=== PATIENT | male | born 1940 | race Two or more races ===

== ENCOUNTER 2019-03-24 16:42 | Inpatient (IN) | payer OTHER ==
[2019-03-24] MEDS ORDERED: ASPIRIN 81 MG CHEWABLE TABLETS PO ONE (16:54)
--- NOTE | 2019-03-24 16:55 | PDOC ---
Rapid Medical Evaluation Time Seen by Provider: 03/24/19 16:49 Medical Evaluation: Allergies Allergy/AdvReac Type Severity Reaction Status Date / Time No Known Drug Allergies Allergy Verified 04/23/15 10:11 03/24/19 16:50 CC: midsternal chest pain radiating to right shoulder- PMHx- CABG x4 with 2 stents after bypass, valve repair PE: Speaking full sentences. Lungs CTAB. Chest non-tender. Skin warm and dry. Pain different than pain with CABG and stents. Orders: Cardiac w/u Patient will proceed to ED for continued evaluation. Discharge Disposition - Diagnosis Chest pain - Referrals - Patient Instructions - Post Discharge Activity
--- NOTE | 2019-03-24 18:40 | PDOC ---
History of Present Illness - General Chief Complaint: Chest Pain Stated Complaint: CHEST PAIN Time Seen by Provider: 03/24/19 16:49 - History of Present Illness Initial Comments: 03/24/19 18:26 78 y/o M hx of HTN, CAD, CABG s/p stent placement, CHF, pulmonary htn, presents to the ED with chest pain that began this morning. The pain has been constant in his mid chest radiating to his left shoulder. No relieving or exacerbating factors. He saw Dr. Sharmila katz a.m who sent an EKG to his Dr. Ricci who was not impressed with EKG. Pt went home. At home his pain worsened around 3 -4pm and he came to the ED. He describes it as pressure like pain with about a 5 /10 severity. He denies, nausea,vomiting, diaphoresis, fevers, chills 03/24/19 18:50 Past History - Past Medical History Allergies/Adverse Reactions: Allergies Allergy/AdvReac Type Severity Reaction Status Date / Time No Known Drug Allergies Allergy Verified 03/24/19 16:54 Home Medications: Ambulatory Orders Aspirin [Ecotrin] 81 mg PO DAILY 11/23/14 Clopidogrel Bisulfate [Plavix -] 75 mg PO DAILY 11/23/14 Lipase/Protease/Amylase [[place] 15,000 Unit Capsule] 1 500s PO TID 11/23/14 Lubiprostone [Amitiza] 24 mcg PO BID 11/23/14 Metoprolol Succinate [Toprol XL -] 25 mg PO HS 11/23/14 Olmesartan/Hydrochlorothiazide [Benicar Hct 20-12.5 mg Tablet] 1 mg PO DAILY metFORMIN HCL [Metformin ER Osmotic] 500 mg PO BID 11/23/14 Metoprolol Succinate [Toprol Xl] 50 mg PO DAILY 11/24/14 Diazepam [Valium -] 2 mg PO BID #14 tablet 04/25/15 Anemia: No Asthma: No Cancer: No Cardiac Disorders: Yes (2 OPEN HEART SX 1998, 2010) CVA: No COPD: No CHF: No Dementia: No Diabetes: Yes GI Disorders: No Disorders: No HTN: Yes Hypercholesterolemia: Yes Liver Disease: No Seizures: No Thyroid Disease: No - Surgical History Abdominal Surgery: No Appendectomy: Yes (COLONOSCOPY, POLYPS) Cardiac Surgery: No Cholecystectomy: No Lung Surgery: Yes (2 OPEN HEART SX AND STENTS) Neurologic Surgery: No Orthopedic Surgery: No - Suicide/Smoking/Psychosocial Hx Smoking History: Never smoked Have you smoked in the past 12 months: No Hx Alcohol Use: No Drug/Substance Use Hx: No Substance Use Type: None Hx Substance Use Treatment: No Review of Systems - Review of Systems Constitutional: No: Chills, Fever HEENTM: No: Eye Pain, Blurred Vision Respiratory: No: Cough, Shortness of Breath Cardiac (ROS): Yes: Symptoms Reported ABD/GI: No: Abdominal Distended, Abdominal cramping : No: Burning, Dysuria Integumentary: No: Bruising, Change in Color Neurological: No: Headache *Physical Exam - Vital Signs Last Vital Signs Temp Pulse Resp BP Pulse Ox 97.9 F 78 16 104/49 L 97 03/24/19 16:50 03/24/19 16:50 03/24/19 16:50 03/24/19 16:50 03/24/19 16:50 - Physical Exam General Appearance: Yes: Nourished, Appropriately Dressed. No: Apparent Distress HEENT: positive: EOMI. negative: Scleral Icterus (R), Scleral Icterus (L) Neck: positive: Trachea midline, Supple. negative: Tender Respiratory/Chest: positive: Lungs Clear, Normal Breath Sounds. negative: Chest Tender, Respiratory Distress, Accessory Muscle Use, Rales, Wheezing Cardiovascular: positive: Regular Rhythm, Regular Rate, S1, S2, Murmur Vascular Pulses: Dorsalis-Pedis (R): 2+, Doralis-Pedis (L): 2+ Gastrointestinal/Abdominal: positive: Normal Bowel Sounds, Soft. negative: Mass Musculoskeletal: positive: Normal Inspection. negative: CVA Tenderness Extremity: positive: Normal Capillary Refill, Normal Inspection, Normal Range of Motion, Calf Tenderness, Other (pedal edema bilaterally). negative: Coldness Integumentary: positive: Normal Color, Dry, Warm Neurologic: positive: Fully Oriented, Alert, Normal Mood/Affect Medical Decision Making - Medical Decision Making 03/24/19 19:14 78 y/o M hx of HTN, CAD, CABG s/p stent placement, CHF, pulmonary htn, presents to the ED with chest pain that began this morning Getting a cardiac workup as well as duplex venous u/s on legs bilaterally. Results back so far EKG: NSR, right bundle branch block. same as EKG in 2015 -spoke with Dr. Doll pt. is admitted to his service. Signed out to Dr. Isaac *DC/Admit/Observation/Transfer Diagnosis at time of Disposition: Chest pain - Referrals Referrals: Roger Quezada MD [Primary Care Provider] - - Patient Instructions - Post Discharge Activity
[2019-03-24] MEDS ORDERED: ACETAMINOPHEN 325 MG TABLET (FP) PO PRN (19:13)
[2019-03-24] MEDS ORDERED: diazePAM 2 MG TABLET PO PRN (19:22)
--- NOTE | 2019-03-24 19:30 | PDOC ---
*Physical Exam - Vital Signs Last Vital Signs Temp Pulse Resp BP Pulse Ox 97.9 F 78 16 104/49 L 97 03/24/19 16:50 03/24/19 16:50 03/24/19 16:50 03/24/19 16:50 03/24/19 16:50 - Physical Exam Comments: Pt was signed out to me by resident Dr. Quezada, who explained the presentation, ED course, any pending results, and needed interventions. Pending results include labs and b/l LE doppler to evaluate for DVT (swelling in LLE). Pt is currently stable and is lying comfortably. Pt has been provided daily aspirin dose. Pt admitted to Dr. Doll's service. Will get stress-test tomorrow. 03/24/19 19:28 ED Treatment Course - LABORATORY CBC & Chemistry Diagram: 03/24/19 19:20 03/24/19 20:35 Medical Decision Making - Medical Decision Making Pt was signed out to me by resident Dr. Quezada, who explained the presentation, ED course, any pending results, and needed interventions. Pending results include labs and b/l LE doppler to evaluate for DVT. Pt is currently stable and is lying comfortably. Provided daily dose of aspirin. ECG with no new changes (chronic RBBB) CBC within pt baseline Coags WNL Pending CMP. First CMP hemolyzed, specimen resent to lab. Pt taken for doppler. 03/24/19 21:02 CMP WNL Trop negative LE doppler showed no DVT Pt stable and lying comfortably. Pending bed upstairs. 03/24/19 23:38 *DC/Admit/Observation/Transfer Diagnosis at time of Disposition: Chest pain Qualifiers: Chest pain type: unspecified Qualified Code(s): R07.9 - Chest pain, unspecified - Discharge Dispostion Condition at time of disposition: Stable Decision to Admit order: Yes - Referrals - Patient Instructions - Post Discharge Activity
--- NOTE | 2019-03-24 19:45 | PDOC ---
Documentation entered by Yanira Oswald SCRIBE, acting as scribe for Arelis Webster DO. Arelis Webster DO: This documentation has been prepared by the Margret galindo Adrianna, SCRIBE, under my direction and personally reviewed by me in its entirety. I confirm that the documentation accurately reflects all work, treatment, procedures, and medical decision making performed by me. Attending Attestation - Resident Resident Name: Alton Quezada - ED Attending Attestation I have performed the following: I have examined & evaluated the patient, The case was reviewed & discussed with the resident, I agree w/resident's findings & plan - HPI HPI: The patient is an 78 year old male, with a significant PMH of HTN, CAD, CABG (s/ p stent placement), CHF, and pulmonary HTN, who presents to the ED for evaluation of chest pain since earlier this morning. Patient reports constant substernal chest pain, that radiates to his left shoulder and is exacerbated with inspiration and palpation. Patient saw Dr. Doll earlier today for this complaint, and returns to the ED for progressively worsening pain. Allergies: NKA, NKDA Surgical History: CABG, 2 stents, Social History: Denies EtOH, tobacco, or illicit drug use PCP: Dr. Quezada - Physicial Exam PE: 03/24/19 19:11 Agree with resident exam - Medical Decision Making 03/24/19 19:43 78 yo male with pmh of cad c/o cp and leg pain plan for LE Duplex, CXR labs EKG unchanged pt has mild persistant pain , ASA given as he did not take his morning dose, he is refusing Nitro admit to hospitalist service
[2019-03-24 19:59] LABS: BASO % 1.2 % (0-2.0); HEMATOCRIT 32.3 % (35.4-49); HEMOGLOBIN 10.4 GM/dL (11.7-16.9); LYMPH % 32.8 % (8-40); MCHC 32.2 g/dl (32.0-35.9); MEAN CELL VOLUME 80.9 fl (80-96); MEAN PLT VOLUME 8.1 fl (7.5-11.1); MONO % 9.8 % (3.8-10.2); NEUT % 52.2 % (42.8-82.8); PLATELET COUNT 250 K/MM3 (134-434); RDW 17.5 % (11.9-15.9); WHITE BLOOD COUNT 6.1 K/mm3 (4.0-10.0)
[2019-03-24 20:35] LABS: INR 1.15 (0.83-1.09); PROTHROMBIN TIME (PATIENT) 13.6 SEC (9.7-13.0)
[2019-03-24 21:08] LABS: MAGNESIUM 1.8 mg/dL (1.8-2.4)
[2019-03-24 22:07] LABS: ALBUMIN 3.8 g/dl (3.4-5.0); BILIRUBIN,TOTAL 0.2 mg/dL (0.2-1); BLOOD UREA NITROGEN 26.6 mg/dL (7-18); CALCIUM 9.2 mg/dL (8.5-10.1); CREATININE 1.3 mg/dL (0.55-1.3); POTASSIUM 3.8 mmol/L (3.5-5.1)
[2019-03-24] MEDS ORDERED: ACETAMINOPHEN 325 MG TABLET (FP) ONE (23:45)
[2019-03-24] MEDS ORDERED: ZOLPIDEM TARTRATE 5 MG TABLET ONE (23:45)
[2019-03-24] MEDS: ZOLPIDEM TARTRATE 5 MG TABLET PO PRN (23:57)
[2019-03-25 03:08] VITALS: BMI 29.6
[2019-03-25 06:49] LABS: HEMATOCRIT 27.3 % (35.4-49); HEMOGLOBIN 9.1 GM/dL (11.7-16.9); MCH 26.6 pg (25.7-33.7); MCHC 33.4 g/dl (32.0-35.9); MEAN CELL VOLUME 79.7 fl (80-96); MEAN PLT VOLUME 7.8 fl (7.5-11.1); PLATELET COUNT 212 K/MM3 (134-434); RBC 3.43 M/mm3 (4.00-5.60); RDW 17.2 % (11.9-15.9); WHITE BLOOD COUNT 5.5 K/mm3 (4.0-10.0)
--- NOTE | 2019-03-25 08:28 | HP ---
Admitting History and Physical - Admission History of Present Illness: 78 year old male, with a significant PMH of HTN, CAD, CABG (s/p stent placement) , CHF, and pulmonary HTN, who presents to the ED for evaluation of chest pain. Patient reports constant substernal chest pain, that radiates to his left shoulder and is exacerbated with inspiration and palpation. Patient saw Dr. Doll yesterday for this complaint, and sent to the ED for progressively worsening pain. - Past Medical History Cardiovascular: Yes: CAD, CHF, HTN, [place], Pulmonary Hypertension - Past Surgical History Past Surgical History: Yes: Valve Replacement - Smoking History Smoking history: Never smoked Have you smoked in the past 12 months: No - Alcohol/Substance Use Hx Alcohol Use: No Home Medications - Allergies Allergies/Adverse Reactions: Allergies Allergy/AdvReac Type Severity Reaction Status Date / Time No Known Drug Allergies Allergy Verified 03/24/19 16:54 - Home Medications Home Medications: Ambulatory Orders Aspirin [Ecotrin] 81 mg PO DAILY 11/23/14 Clopidogrel Bisulfate [Plavix -] 75 mg PO DAILY 11/23/14 Lipase/Protease/Amylase [Rain Dr 15,000 Unit Capsule] 1 500s PO TID 11/23/14 Lubiprostone [Amitiza] 24 mcg PO BID 11/23/14 Metoprolol Succinate [Toprol XL -] 25 mg PO HS 11/23/14 Olmesartan/Hydrochlorothiazide [Benicar Hct 20-12.5 mg Tablet] 1 mg PO DAILY metFORMIN HCL [Metformin ER Osmotic] 500 mg PO BID 11/23/14 Metoprolol Succinate [Toprol Xl] 50 mg PO DAILY 11/24/14 Diazepam [Valium -] 2 mg PO BID #14 tablet 04/25/15 Review of Systems - Review of Systems Cardiovascular: reports: Chest Pain Respiratory: reports: SOB on Exertion Gastrointestinal: reports: No Symptoms Genitourinary: reports: No Symptoms Physical Examination Vital Signs: Vital Signs Temperature 97.8 F 03/25/19 06:00 Pulse Rate 78 03/25/19 06:00 Respiratory Rate 18 03/25/19 06:00 Blood Pressure 110/59 L 03/25/19 06:00 O2 Sat by Pulse Oximetry (%) 100 03/25/19 02:30 Cardiovascular: Yes: Murmur, S1, S2 Respiratory: Yes: Regular, CTA Bilaterally Gastrointestinal: Yes: Normal Bowel Sounds, Soft. No: Tenderness Edema: No Labs: CBC, BMP 03/25/19 05:45 03/24/19 20:35 Imaging - Results Chest X-ray: Report Reviewed (nad) Ultrasound: Report Reviewed (LE no dvt carotid--mod plaque) Problem List - Problems (1) Chest pain Assessment/Plan: nuclear stress test cardio consult same meds statin trop neg Code(s): R07.9 - CHEST PAIN, UNSPECIFIED Qualifiers: Chest pain type: unspecified Qualified Code(s): R07.9 - Chest pain, unspecified (2) HTN (hypertension) Assessment/Plan: controlled Code(s): I10 - ESSENTIAL (PRIMARY) HYPERTENSION (3) Systolic and diastolic CHF, chronic Assessment/Plan: same meds no evidence of chf Code(s): I50.42 - CHRONIC COMBINED SYSTOLIC AND DIASTOLIC HRT FAIL (4) CALLES (dyspnea on exertion) Assessment/Plan: cardio w/u as above pulm consult Code(s): R06.09 - OTHER FORMS OF DYSPNEA
[2019-03-25 09:19] LABS: ALBUMIN 3.2 g/dl (3.4-5.0); ALK PHOS 59 U/L (45-117); ANION GAP 8 MMOL/L (8-16); BILIRUBIN,TOTAL 0.2 mg/dL (0.2-1); BLOOD UREA NITROGEN 24.4 mg/dL (7-18); CALCIUM 8.8 mg/dL (8.5-10.1); CHLORIDE 107 mmol/L (98-107); CO2 30 mmol/L (21-32); GLUCOSE,RANDOM 113 mg/dL (74-106); IRON SERUM 20 ug/dL (50-175); POTASSIUM 3.7 mmol/L (3.5-5.1); SGOT/AST 21 U/L (15-37); SGPT/ALT 17 U/L (13-61); SODIUM 144 mmol/L (136-145); TOT PROT 5.9 g/dl (6.4-8.2); TOTAL IRON BINDING CAPACITY 331 ug/dL (250-450)
[2019-03-25] MEDS ORDERED: ASPIRIN COATED 81 MG TABLET.EC PO SCH (10:00)
[2019-03-25] MEDS ORDERED: CLOPIDOGREL BISULFATE 75 MG TABLET (FP) PO SCH (10:00)
[2019-03-25] MEDS ORDERED: REGADENOSON 0.4 MG/5 ML PRE-FILLED SYRINGE IVPUSH ONE ×2 (10:36→10:45)
--- NOTE | 2019-03-25 14:04 | PN ---
Progress Note (short form) - Note Progress Note: PULMONARY CONSULTATION DICTATED 03/25/19 IMP CHEST PAIN SYNDROME R/O ANGINA ASHD S/P STENT/CABG DYSPNEA CHF PULMONARY HTN HTN ANEMIA R/O [place] PLAN CARDIOLOGY EVALUATION O2 NEEDED ASA ,PLAVIX MONITOR H+H ECHO SLEEP SCREEN DR SAHU Problem List - Problems (1) Chest pain Code(s): R07.9 - CHEST PAIN, UNSPECIFIED Qualifiers: Chest pain type: unspecified Qualified Code(s): R07.9 - Chest pain, unspecified (2) HTN (hypertension) Code(s): I10 - ESSENTIAL (PRIMARY) HYPERTENSION (3) Systolic and diastolic CHF, chronic Code(s): I50.42 - CHRONIC COMBINED SYSTOLIC AND DIASTOLIC HRT FAIL (4) Pulmonary HTN Code(s): I27.20 - PULMONARY HYPERTENSION, UNSPECIFIED (5) Anemia Code(s): D64.9 - ANEMIA, UNSPECIFIED (6) CALLES (dyspnea on exertion) Code(s): R06.09 - OTHER FORMS OF DYSPNEA
--- NOTE | 2019-03-25 15:06 | CON.CARD ---
Consult Consult Specialty:: cardio - History of Present Illness Chief Complaint: cp History of Present Illness: 78 M admitted with chest pain. 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 bp was on the low side yest so dr ceja held his ARB. LE dopplers done here showed no DVT. stress mibi done today showed basal inferior scar with mild nasrin-infarct ischemia. pt had L scapular mild discomfort while at rest on 03/23. lasted 10-15 min, resolved on its own. no associated abd pain, heart burn/sour taste in mouth, nausea. no LH, diaphoresis, sob. later that day when walking he felt somewhat fatigued--unusual for him. yest again felt similar episode, again resolved in 15 min or so. has had upset stomach/diarrhea (green, no melena/blood) for few days as well. never had chest pain or any other sx prior to initial CABG (1998), subsequent stents, or 2nd CABG 2010 ([facility] [place] [place]). notes he has felt mildly sob for about a week when exerts himself. mild feet swelling is chronic/no change no orthopnea PMH: HTN, CAD, CABG, s/p stent placement CHF, pulmonary HTN--details not available. - Past Medical History Cardio/Vascular: Yes: CAD, CHF, HTN, [place], Pulmonary Hypertension - Past Surgical History Past Surgical History: Yes: Valve Replacement - Alcohol/Substance Use Hx Alcohol Use: No - Smoking History Smoking history: Never smoked Have you smoked in the past 12 months: No Home Medications - Allergies Allergies/Adverse Reactions: Allergies Allergy/AdvReac Type Severity Reaction Status Date / Time No Known Drug Allergies Allergy Verified 03/24/19 16:54 - Home Medications Home Medications: Ambulatory Orders Aspirin [Ecotrin] 81 mg PO DAILY 11/23/14 Clopidogrel Bisulfate [Plavix -] 75 mg PO DAILY 11/23/14 Lipase/Protease/Amylase [[place] 15,000 Unit Capsule] 1 500s PO TID 11/23/14 Lubiprostone [Amitiza] 24 mcg PO BID 11/23/14 Metoprolol Succinate [Toprol XL -] 25 mg PO HS 11/23/14 Olmesartan/Hydrochlorothiazide [Benicar Hct 20-12.5 mg Tablet] 1 mg PO DAILY metFORMIN HCL [Metformin ER Osmotic] 500 mg PO BID 11/23/14 Metoprolol Succinate [Toprol Xl] 50 mg PO DAILY 11/24/14 Diazepam [Valium -] 2 mg PO BID #14 tablet 04/25/15 Family Disease History - Family Disease History Family History: Denies (no known cmp) Review of Systems - Review of Systems Constitutional: denies: Chills, Fever Eyes: denies: Eye Pain HENT: denies: Nasal Congestion Neck: denies: Stiffness Cardiovascular: denies: Palpitations Respiratory: denies: Orthopnea, PND Gastrointestinal: denies: Diarrhea, Rectal Bleeding Genitourinary: denies: Burning, Hematuria Musculoskeletal: denies: Muscle Pain Integumentary: denies: Rash Neurological: denies: Numbness, Seizure, Syncope Endocrine: denies: Excessive Sweating Hematology/Lymphatic: denies: Excessive Bleeding Vital Signs: Vital Signs Temperature 97.8 F 03/25/19 06:00 Pulse Rate 72 03/25/19 10:00 Respiratory Rate 18 03/25/19 10:00 Blood Pressure 147/88 03/25/19 10:00 O2 Sat by Pulse Oximetry (%) 100 03/25/19 02:30 Constitutional: Yes: Well Nourished, No Distress Eyes: No: Sclera Icterus HENT: No: Nasal Congestion Neck: No: Decreased ROM Respiratory: Yes: CTA Bilaterally. No: Accessory Muscle Use, Rales, Wheezes Gastrointestinal: Yes: Normal Bowel Sounds. No: Distention, Hepatomegaly, Palpable Mass, Tenderness Cardiovascular: Yes: Regular Rate and Rhythm JVD: Yes Carotid Bruit: No PMI: Non-Displaced Heart Sounds: Yes: S1, S2. No: Gallop Murmur: No: Systolic Murmur, Diastolic Murmur Musculoskeletal: Yes: Other (No kyphosis) Extremities: No: Cool, Cyanosis Edema: No Peripheral Pulses: 2+ Left Carotid, 2+ Right Carotid, 2+ Left Doralis Pedis, 2+ Right Dorsalis Pedis Integumentary: No: Jaundice Neurological: Yes: Alert, Oriented (x3) Psychiatric: No: Agitated - Other Data Labs, Other Data: CBC, BMP 03/25/19 05:45 03/25/19 05:45 INR, PTT INR 1.15 (0.83-1.09) H 08/19/19 19:20 Troponin, BNP 03/24/19 03/24/19 03/25/19 19:20 20:35 05:45 Troponin I Cancelled 0.02 < 0.02 Troponin, BNP 03/24/19 03/24/19 03/25/19 19:20 20:35 05:45 Troponin I Cancelled 0.02 < 0.02 Assessment/Plan ECG: NSR, RBBB, no path q's, no signif ST-T--no change vs 04/2015 prior CXR: clear lungs/pleura MPI (tolu) 03/24: no STs. medium sized fixed defeect basal IW with mild nasrin- infarct ischemia. nl LV size/EF. no TID Carotids 03/24: L CCA 50-69% stenosis (PSV 120 cm/sec). nonobstructive R CCA chest pain, h/o CAD: -prior CABG, PCI (details not available) -here with chest pain: troponin neg x 2, ECG non-ischemic -stress test with no significant ischemia (basal inferior scar with mild nasrin- infarct ischemia reported), no RWMA, nl EF: ? true small scar with nasrin-infarct ischemia (no tx indicated), ? variable diaphragm attenuation appearance, ? inferior ischemia with co-exising diaphragm artifact. -given normal LV cavity size/no TID, no ST changes, nl EF, and no hi risk clinical findings on ekg's/enzymes/sx type, none of the above possibilities is indication for invasive eval with cath. -? gastritis/PUD in light of Fe deficiency anemia--GI consult pending -he is on DAPT--last stent was > 8 yrs ago. plavix reasonable as monotherapy given also PAD indication. minimal anti-ischemia benefit to indefinite DAPT here and bleeding risk is > ischemia risk--stop aspirin. -will hold plavix pending GIB eval. -hi intensity statin regimen is indicated here. home statin needs clarification , as well as any prior intolerances--cont home regimen for now, outpt f/u -metoprolol as doing. anemia: -? chronicity -hgb 10s-->9.1. -low Fe, Fe sat, and low normal ferritin--? bleeding (PUD as cause of chest pain as well???) -check occult blood in stool -holding DAPT--resume plavix once cleared by GI -d/w'd dr ceja--dr linares to consult h/o CHF, pulm HTN: -details uncertain -notes mild CALLES and exertional fatigue, new for him. -JVD on exam -chest heaviness may be HF sx as well. -check BNP, echo--will likely rec trial of lasix to improve exertional sx's, given degree of anemia on DOA does not seem enough to cause sob Carotid disease: -velocity not consistent with > 70%, only minimally elevated. -asymptomatic. -routine outpt surveillance -aggressive CV meds (aspirin, statin, bp control) HTN: -bp's soft at times here, olmesartan/HCTZ held -resume metoprolol, observe bp trend PAD: -prior LE stents, ? details -plavix, statin
--- NOTE | 2019-03-25 16:13 | EKG ---
Test Reason : Blood Pressure : / mmHG Vent. Rate : 077 BPM Atrial Rate : 077 BPM P-R Int : 142 ms QRS Dur : 130 ms QT Int : 434 ms P-R-T Axes : 062 035 028 degrees QTc Int : 491 ms NORMAL SINUS RHYTHM RIGHT BUNDLE BRANCH BLOCK ABNORMAL ECG WHEN COMPARED WITH ECG OF 23-APR-2015 10:46, BORDERLINE CRITERIA FOR INFERIOR INFARCT ARE NO LONGER PRESENT Confirmed by MD CAROL, KIERRA ([id number]) on 03/25/2019 4:13:11 PM Referred By: Confirmed By:KIERRA MEDINA MD
[2019-03-25] MEDS ORDERED: FERRIC CARBOXYMALTOSE 750 MG in SODIUM CHLORIDE 250 ML IVPB ONE (17:00)
--- NOTE | 2019-03-25 17:04 | CONS ---
DATE OF CONSULTATION: 03/25/2019 PULMONARY CONSULTATION REFERRING PHYSICIAN: González Doll M.D. HISTORY OF PRESENT ILLNESS: The patient is an 78-year-old white male with a past medical history of ASHD status post CABG x2, status post stent, congestive heart failure, pulmonary hypertension, hypertension, admitted to [facility] with complaints of chest pain. The patient states he was doing well until the day of admission when in the morning started developing chest pain. He describes the pain as substernal radiating to the left shoulder associated with increasing inspiration and palpation. Denied any nausea, vomiting, diaphoresis. Denied any fevers or chills. He presented to the emergency room with the above. The patient denies any history of DVT, PE. He denies any history of any recent travel. Of note is, patient states for the past few months he has felt increasing shortness of breath with exertion. He denies any history of COPD or asthma. He is a nonsmoker. There is no history of occupational exposure to chemicals or fumes. PAST MEDICAL HISTORY: Includes hypertension, ASHD, status post bypass graft x2, status post stent placement, CHF, pulmonary hypertension. REVIEW OF SYSTEMS: Positive dyspnea, mild dyspnea, positive chest pain, positive PND. No orthopnea, no fever, no chills, no hemoptysis, no cough, no abdominal pain, no lower extremity edema. SOCIAL HISTORY: Born in [place], moved to the [place] greater than 55 years ago. Previously worked in a factory. Denies any occupational exposures. CURRENT MEDICATIONS: Include Tylenol, Ambien, Valium, Ecotrin, and Plavix. PHYSICAL EXAMINATION: General: The patient is a well-developed, well-nourished male awake, alert, in no acute distress. He is afebrile. Vital Signs: Heart rate is 72, blood pressure is 147/88, respiratory rate is 18 , and O2 saturation is 100% on room air. HEENT: Normocephalic, atraumatic. Neck: Supple. Heart: Regular S1, S2. Chest: Clear. Abdomen: Soft, bowel sounds positive. Extremities: No cyanosis, edema. LABORATORY: WBC 5.5. Hemoglobin 9.1, hematocrit 27.3, the platelet count of 212,000. INR is 1.15. BUN 24, creatinine 1.0. WBC is 5.1, hemoglobin 9.1, and hematocrit 27.3. Platelet count of 212. Chest x-ray: No infiltrates and no effusion. IMPRESSION: 1. Chest pain syndrome, rule out arteriosclerotic heart disease, rule out angina. 2. Arteriosclerotic heart disease status post stents, status post coronary artery bypass graft x2. 3. Dyspnea, likely secondary to cardiac. 4. History of congestive heart failure. 5. Pulmonary hypertension. 6. Hypertension. 7. Anemia. 8. 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 Supplemental O2 as needed. Continue aspirin, Plavix. Monitor hemoglobin and hematocrit. Echocardiogram. Exercise stress test. Sleep screen DAMON SAHU M.D. BERNADETTE/[id number] MTDD
[2019-03-25 18:05] LABS: CHOLESTEROL 182 mg/dL (50-200); HDL CHOLESTEROL 38 mg/dL (40-60); TRIGLYCERIDES 197 mg/dL (0-150)
[2019-03-25] MEDS: METOPROLOL TARTRATE 25 MG TABLET (FP) PO SCH (21:37)
[2019-03-25] MEDS: ZOLPIDEM TARTRATE 5 MG TABLET PO PRN (21:40)
--- NOTE | 2019-03-26 08:06 | CON.GI ---
Consult Consult Specialty:: GI Referred by:: Dr González Doll Reason for Consultation:: GI bleed - History of Present Illness History of Present Illness: Patient is an 78 y/o male with past medical history of HTN, CAD, CABG s/p stent placement, pulmonary HTN, and CHF. Consult was placed for GI bleed. Patient currently is on aspirin and plavix due to CABG with stent placement. SInce being on plavix and aspirin patient has become progressively anemic. On admission Hg 10.4 and drop to 9.1. Patient had EGD 06/2018 which showed resistant strain H.Pylori and chronic gastritis. Colonoscopy done in 2017 showed diverticula in sigmoid colon. Patient denies rectal bleeding, blood in stool or melena. Denies abdominal pain, nausea, vomiting. - History Source History Provided By: Patient Limitations to Obtaining History: No Limitations - Past Medical History Cardio/Vascular: Yes: CAD, CHF, HTN, GA, Pulmonary Hypertension - Past Surgical History Past Surgical History: Yes: CABG, Stent, Valve Replacement - Alcohol/Substance Use Hx Alcohol Use: No - Smoking History Smoking history: Never smoked Have you smoked in the past 12 months: No - Social History ADL: Independent History of Recent Travel: No Home Medications - Allergies Allergies/Adverse Reactions: Allergies Allergy/AdvReac Type Severity Reaction Status Date / Time No Known Drug Allergies Allergy Verified 03/24/19 16:54 - Home Medications Home Medications: Ambulatory Orders Aspirin [Ecotrin] 81 mg PO DAILY 11/23/14 Clopidogrel Bisulfate [Plavix -] 75 mg PO DAILY 11/23/14 Lipase/Protease/Amylase [Rain Dr 15,000 Unit Capsule] 1 500s PO TID 11/23/14 Lubiprostone [Amitiza] 24 mcg PO BID 11/23/14 Metoprolol Succinate [Toprol XL -] 25 mg PO HS 11/23/14 Olmesartan/Hydrochlorothiazide [Benicar Hct 20-12.5 mg Tablet] 1 mg PO DAILY metFORMIN HCL [Metformin ER Osmotic] 500 mg PO BID 11/23/14 Metoprolol Succinate [Toprol Xl] 50 mg PO DAILY 11/24/14 Diazepam [Valium -] 2 mg PO BID #14 tablet 04/25/15 Review of Systems - Review of Systems Constitutional: reports: No Symptoms Eyes: reports: No Symptoms HENT: reports: No Symptoms Neck: reports: No Symptoms Cardiovascular: reports: No Symptoms Respiratory: reports: No Symptoms Gastrointestinal: reports: No Symptoms Genitourinary: reports: No Symptoms Breasts: reports: No Symptoms Reported Musculoskeletal: reports: No Symptoms Integumentary: reports: No Symptoms Neurological: reports: No Symptoms Endocrine: reports: No Symptoms Hematology/Lymphatic: reports: No Symptoms Psychiatric: reports: No Symptoms Physical Exam-GI Vital Signs: Vital Signs Temperature 98.4 F 03/26/19 02:00 Pulse Rate 90 03/26/19 02:00 Respiratory Rate 03/26/19 02:00 Blood Pressure 141/73 03/26/19 02:00 O2 Sat by Pulse Oximetry (%) 89 L 03/25/19 20:57 Constitutional: Yes: No Distress, Calm Eyes: Yes: Conjunctiva Clear HENT: Yes: Atraumatic Cardiovascular: Yes: Regular Rate and Rhythm Respiratory: Yes: Regular, CTA Bilaterally Gastrointestinal Inspection: Yes: WNL. No: Ascites, Distention, Hernia, Scars, Other ...Auscultate: Yes: Normoactive Bowel Sounds. No: Hyperactive Bowel Sounds, Hypoactive Bowel Sounds, No Bowel Sounds, Other ...Palpate: Yes: Soft, Other (non tender). No: Firm/Rigid, Guarding, Hepatomegaly, Mass, Pulsatile Mass, Splenomegaly, Tenderness, Tenderness, Epigastium, Tenderness, Rebound ...Percussion: Yes: Tympanitic. No: Dullness, Fluid Wave, Other Neurological: Yes: Alert, Oriented Psychiatric: Yes: Alert, Oriented Labs: CBC, BMP 03/25/19 05:45 INR, PTT INR 1.15 (0.83-1.09) H 03/24/19 19:20 Problem List - Problems (1) Anemia Code(s): D64.9 - ANEMIA, UNSPECIFIED
[2019-03-26 08:12] LABS: HEMATOCRIT 29.5 % (35.4-49); HEMOGLOBIN 9.7 GM/dL (11.7-16.9); MCHC 32.9 g/dl (32.0-35.9); MEAN CELL VOLUME 78.9 fl (80-96); MEAN PLT VOLUME 7.8 fl (7.5-11.1); PLATELET COUNT 242 K/MM3 (134-434); RBC 3.74 M/mm3 (4.00-5.60); WHITE BLOOD COUNT 6.9 K/mm3 (4.0-10.0)
[2019-03-26 08:34] LABS: ALBUMIN 3.2 g/dl (3.4-5.0); BILIRUBIN,TOTAL 0.3 mg/dL (0.2-1); BLOOD UREA NITROGEN 13.6 mg/dL (7-18); CALCIUM 8.8 mg/dL (8.5-10.1); CREATININE 0.8 mg/dL (0.55-1.3); POTASSIUM 3.9 mmol/L (3.5-5.1)
--- NOTE | 2019-03-26 09:13 | PN ---
Progress Note, Physician - Current Medication List Current Medications: Active Medications Acetaminophen (Tylenol -) 650 mg PO Q6H PRN PRN Reason: PAIN OR FEVER Last Admin: 03/24/19 23:57 Dose: 650 mg Diazepam (Valium -) 2 mg PO Q12H PRN PRN Reason: ANXIETY Metoprolol Tartrate (Lopressor -) 12.5 mg PO BID CALLIE Last Admin: 03/25/19 21:37 Dose: 12.5 mg Pantoprazole Sodium (Protonix -) 40 mg PO DAILY CALLIE Ranolazine (Ranexa -) 500 mg PO BID [facility] Zolpidem Tartrate (Ambien -) 5 mg PO HS PRN PRN Reason: INSOMNIA Last Admin: 03/25/19 21:40 Dose: 5 mg - Objective Vital Signs: Vital Signs Temperature 98.4 F 03/26/19 02:00 Pulse Rate 90 03/26/19 02:00 Respiratory Rate 20 03/26/19 02:00 Blood Pressure 141/73 03/26/19 02:00 O2 Sat by Pulse Oximetry (%) 89 L 03/25/19 20:57 Cardiovascular: Yes: Regular Rate and Rhythm Respiratory: Yes: Regular, CTA Bilaterally Gastrointestinal: Yes: Normal Bowel Sounds, Soft. No: Tenderness Labs: CBC, BMP 03/26/19 06:00 03/26/19 06:51 INR, PTT INR 1.15 (0.83-1.09) H 03/24/19 19:20 Problem List - Problems (1) Chest pain Assessment/Plan: nuclear stress test noted and discussed with cardiology cardio consult noted add ranexa resume plavix statin trop neg Code(s): R07.9 - CHEST PAIN, UNSPECIFIED Qualifiers: Chest pain type: unspecified Qualified Code(s): R07.9 - Chest pain, unspecified (2) HTN (hypertension) Assessment/Plan: add altace Code(s): I10 - ESSENTIAL (PRIMARY) HYPERTENSION (3) Systolic and diastolic CHF, chronic Assessment/Plan: same meds no evidence of chf Code(s): I50.42 - CHRONIC COMBINED SYSTOLIC AND DIASTOLIC HRT FAIL (4) CALLES (dyspnea on exertion) Assessment/Plan: cardio w/u as above pulm consult Code(s): R06.09 - OTHER FORMS OF DYSPNEA (5) Anemia Assessment/Plan: gi w/u discussed--since had egd and colon will start on PPI and follow up as outpatient for capsule Code(s): D64.9 - ANEMIA, UNSPECIFIED (6) Hypoxia Assessment/Plan: -pulm htn--copd -follow pulse ox -will d/w pulm Code(s): R09.02 - HYPOXEMIA
[2019-03-26] MEDS ORDERED: PANTOPRAZOLE 40 MG TABLET (FP) PO SCH (10:00)
[2019-03-26] MEDS ORDERED: RAMIPRIL 5 MG CAPSULE (FP) PO SCH (10:00)
[2019-03-26] MEDS ORDERED: RANOLAZINE E.R. 500 MG TABLET (FP) PO SCH (10:00)
[2019-03-26] MEDS: METOPROLOL TARTRATE 25 MG TABLET (FP) PO SCH (11:12)
--- NOTE | 2019-03-26 11:28 | PN ---
Progress Note, Physician History of Present Illness: pulmonary alert,no complaints,-cp,-sob at rest - Current Medication List Current Medications: Active Medications Acetaminophen (Tylenol -) 650 mg PO Q6H PRN PRN Reason: PAIN OR FEVER Last Admin: 03/24/19 23:57 Dose: 650 mg Diazepam (Valium -) 2 mg PO Q12H PRN PRN Reason: ANXIETY Metoprolol Tartrate (Lopressor -) 12.5 mg PO BID [facility] Last Admin: 03/26/19 11:12 Dose: 12.5 mg Pantoprazole Sodium (Protonix -) 40 mg PO DAILY [facility] Last Admin: 03/26/19 11:13 Dose: 40 mg Ramipril (Altace -) 5 mg PO DAILY [facility] Last Admin: 03/26/19 11:12 Dose: 5 mg Ranolazine (Ranexa -) 500 mg PO BID [facility] Last Admin: 03/26/19 11:13 Dose: 500 mg Zolpidem Tartrate (Ambien -) 5 mg PO HS PRN PRN Reason: INSOMNIA Last Admin: 03/25/19 21:40 Dose: 5 mg - Objective Vital Signs: Vital Signs Temperature 98.4 F 03/26/19 02:00 Pulse Rate 90 03/26/19 02:00 Respiratory Rate 20 03/26/19 02:00 Blood Pressure 141/73 03/26/19 02:00 O2 Sat by Pulse Oximetry (%) 89 L 03/25/19 20:57 Constitutional: Yes: Well Nourished, Calm Eyes: Yes: WNL HENT: Yes: WNL Neck: Yes: WNL Cardiovascular: Yes: Regular Rate and Rhythm, S1, S2 Respiratory: Yes: Diminished Gastrointestinal: Yes: Normal Bowel Sounds, Soft Extremities: Yes: WNL Edema: No Labs: CBC, BMP 03/26/19 06:00 03/26/19 06:51 INR, PTT INR 1.15 (0.83-1.09) H 03/24/19 19:20 Problem List - Problems (1) Chest pain Code(s): R07.9 - CHEST PAIN, UNSPECIFIED Qualifiers: Chest pain type: unspecified Qualified Code(s): R07.9 - Chest pain, unspecified (2) HTN (hypertension) Code(s): I10 - ESSENTIAL (PRIMARY) HYPERTENSION (3) Systolic and diastolic CHF, chronic Code(s): I50.42 - CHRONIC COMBINED SYSTOLIC AND DIASTOLIC HRT FAIL (4) Pulmonary HTN Code(s): I27.20 - PULMONARY HYPERTENSION, UNSPECIFIED (5) Anemia Code(s): D64.9 - ANEMIA, UNSPECIFIED (6) CALLES (dyspnea on exertion) Code(s): R06.09 - OTHER FORMS OF DYSPNEA Assessment/Plan IMP CHEST PAIN SYNDROME R/O ANGINA ASHD S/P STENT/CABG DYSPNEA CHF PULMONARY HTN HTN ANEMIA R/O MAYITO PLAN O2 NEEDED ASA ,PLAVIX MONITOR H+H ECHO SLEEP SCREEN PENDING AMBULATORY O2 SAT ON RA DR SAHU Problem List - Problems (1) Chest pain Code(s): R07.9 - CHEST PAIN, UNSPECIFIED Qualifiers: Chest pain type: unspecified Qualified Code(s): R07.9 - Chest pain, unspecified (2) HTN (hypertension) Code(s): I10 - ESSENTIAL (PRIMARY) HYPERTENSION (3) Systolic and diastolic CHF, chronic Code(s): I50.42 - CHRONIC COMBINED SYSTOLIC AND DIASTOLIC HRT FAIL (4) Pulmonary HTN Code(s): I27.20 - PULMONARY HYPERTENSION, UNSPECIFIED (5) Anemia Code(s): D64.9 - ANEMIA, UNSPECIFIED (6) CALLES (dyspnea on exertion) Code(s): R06.09 - OTHER FORMS OF DYSPNEA
[2019-03-26 11:52] VITALS: PULSE 90
--- NOTE | 2019-03-26 11:58 | ECHO ---
Name: GIANA SEPULVEDA Exam:Adult Echocardiogram Study Date: 03/26/2019 10:14 AM Age: 78 yrs Reason For Study: SOB CHEST PAIN Height: 65 in Weight: 178 lb BSA: 1.9 m2 MMode/2D Measurements & Calculations IVSd: 1.1 cm Ao root diam: 2.6 cm LVIDd: 4.8 cm LA dimension: 3.8 cm LVIDs: 3.4 cm LVPWd: 0.90 cm EDV(Teich): 108.7 ml LVOT diam: 2.1 cm ESV(Teich): 48.6 ml Doppler Measurements & Calculations MV E max nolan: 87.4 cm/sec Ao V2 max: 255.6 cm/sec MV A max nolan: 98.7 cm/sec Ao max P.2 mmHg MV E/A: 0.88 Ao V2 mean: 184.8 cm/sec MV dec time: 0.27 sec Ao mean P.1 mmHg Ao V2 VTI: 60.5 cm OBINNA(I,D): 1.2 cm2 OBINNA(V,D): 1.4 cm2 LV V1 max P.3 mmHg MR max nolan: 429.4 cm/sec LV V1 mean P.2 mmHg MR max P.9 mmHg LV V1 max: 103.2 cm/sec LV V1 mean: 69.1 cm/sec LV V1 VTI: 20.7 cm SV(LVOT): 73.9 ml TR max nolan: 245.1 cm/sec TR max P.1 mmHg PA V2 max: 99.1 cm/sec PI end-d nolan: 126.6 cm/sec PA max P.9 mmHg Med Peak E' Nolan: 4.5 cm/sec Med E/e': 19.6 Lat Peak E' Nolan: 7.1 cm/sec Lat E/e': 12.3 Procedure A two-dimensional transthoracic echocardiogram with color flow and Doppler was performed. Left Ventricle The left ventricular size, thickness and function are normal. The left ventricular ejection fraction is normal. E/A reversal consistent with but not diagnostic of poor LV compliance. Septal motion is consi stent with post-operative state. Right Ventricle The right ventricle is normal in size and function. Atria Normal left and right atrial size and function. Mitral Valve There is mild to moderate mitral valve thickening. There is no mitral valve stenosis. There is mild t o moderate mitral regurgitation. Tricuspid Valve There is mild tricuspid valve thickening. There is no tricuspid stenosis. There is moderate to severe tricuspid regurgitation. Right ventricular systolic pressure is normal. Aortic Valve There is a bioprosthetic aortic valve. The prosthetic aortic valve is well-seated. Pulmonic Valve The pulmonic valve is not well visualized. There is no pulmonic valvular stenosis. Mild pulmonic valv ular regurgitation. Great Vessels The aortic root is normal size. Pericardium/Pleura There is no pericardial effusion. Interpretation Summary The left ventricular size, thickness and function are normal The left ventricular ejection fraction is normal. Septal motion is consistent with post-operative state. There is mild to moderate mitral valve thickening. There is mild to moderate mitral regurgitation. There is a bioprosthetic aortic valve. The prosthetic aortic valve is well-seated. Right ventricular systolic pressure is normal. There is moderate to severe tricuspid regurgitation. E/A reversal consistent with but not diagnostic of poor LV compliance MD Froilan Jarvis 03/26/2019 11:57 AM
--- NOTE | 2019-03-26 12:15 | PN ---
Progress Note (short form) - Note Progress Note: s: no chest pain, palps, dizziness, dyspnea Current Medications Acetaminophen (Tylenol -) 650 mg PO Q6H PRN PRN Reason: PAIN OR FEVER Last Admin: 03/24/19 23:57 Dose: 650 mg Diazepam (Valium -) 2 mg PO Q12H PRN PRN Reason: ANXIETY Metoprolol Tartrate (Lopressor -) 12.5 mg PO BID [facility] Last Admin: 03/26/19 11:12 Dose: 12.5 mg Pantoprazole Sodium (Protonix -) 40 mg PO DAILY [facility] Last Admin: 03/26/19 11:13 Dose: 40 mg Ramipril (Altace -) 5 mg PO DAILY [facility] Last Admin: 03/26/19 11:12 Dose: 5 mg Ranolazine (Ranexa -) 500 mg PO BID [facility] Last Admin: 03/26/19 11:13 Dose: 500 mg Zolpidem Tartrate (Ambien -) 5 mg PO HS PRN PRN Reason: INSOMNIA Last Admin: 03/25/19 21:40 Dose: 5 mg Vital Signs Period Temp Pulse Resp BP Sys/Shahid Pulse Ox Last 24 Hr 98.1 F-98.9 F 80-93 20-20 96-172/61-88 89-97 Constitutional: Yes: Well Nourished, No Distress Eyes: No: Sclera Icterus HENT: No: Nasal Congestion Neck: No: Decreased ROM Respiratory: Yes: CTA Bilaterally. No: Accessory Muscle Use, Rales, Wheezes Gastrointestinal: Yes: Normal Bowel Sounds. No: Distention, Hepatomegaly, Palpable Mass, Tenderness Cardiovascular: Yes: Regular Rate and Rhythm JVD: Yes Carotid Bruit: No PMI: Non-Displaced Heart Sounds: Yes: S1, S2. No: Gallop Murmur: No: Systolic Murmur, Diastolic Murmur Musculoskeletal: Yes: Other (No kyphosis) Extremities: No: Cool, Cyanosis Edema: No Peripheral Pulses: 2+ Left Carotid, 2+ Right Carotid, 2+ Left Doralis Pedis, 2+ Right Dorsalis Pedis Integumentary: No: Jaundice Neurological: Yes: Alert, Oriented (x3) Psychiatric: No: Agitated Assessment/Plan ECG: NSR, RBBB, no path q's, no signif ST-T--no change vs 04/2015 prior CXR: clear lungs/pleura MPI (tolu) 03/24: no STs. medium sized fixed defeect basal IW with mild nasrin- infarct ischemia. nl LV size/EF. no TID Carotids 03/24: L CCA 50-69% stenosis (PSV 120 cm/sec). nonobstructive R CCA echo 03/2019 nl LV function, mild to mod MR, septal motion c/w post op state, bio AVR, mod to severe TR, E/A reversal tele: sinus, sinus tachycardia, brief PSVT chest pain, h/o CAD: -prior CABG, PCI (details not available) -here with chest pain: troponin neg x 2, ECG non-ischemic -stress test with no significant ischemia (basal inferior scar with mild nasrin- infarct ischemia reported), no RWMA, nl EF: ? true small scar with nasrin-infarct ischemia (no tx indicated), ? variable diaphragm attenuation appearance, ? inferior ischemia with co-exising diaphragm artifact. -given normal LV cavity size/no TID, no ST changes, nl EF, and no hi risk clinical findings on ekg's/enzymes/sx type, none of the above possibilities is indication for invasive eval with cath. -? gastritis/PUD in light of Fe deficiency anemia--GI consult pending -he was on DAPT--last stent was > 8 yrs ago. plavix reasonable as monotherapy given also PAD indication. minimal anti-ischemia benefit to indefinite DAPT here and bleeding risk is > ischemia risk--aspirin dc'ed -per Dr. Burnett: d/w'd dr ceja. pt had EGD 06/23 with H. pylori, no pathology. (FOC 2017 ok).he d/w'd dr linares, who is planning on outpatient workuop (CT enterography +/- small bowel capsule endoscopy). - hold plavix for 3 days, then resume plavix with close h/h monitoring until small bowel workup is completed. -hi intensity statin regimen is indicated here. home statin needs clarification , as well as any prior intolerances--cont home regimen for now, outpt f/u -metoprolol as doing. anemia: -? chronicity -hgb 10s-->9.1. -low Fe, Fe sat, and low normal ferritin--? bleeding (PUD as cause of chest pain as well???) -check occult blood in stool -holding plavix for for GI workup, aspirin stopped as above h/o CHF, pulm HTN: -details uncertain -notes mild CALLES and exertional fatigue, new for him. - echo unremarkable - ranexa started by Dr. Ceja, consider trial of lasix for exertional symptoms if not improving. appears euvolemic today Carotid disease: -velocity not consistent with > 70%, only minimally elevated. -asymptomatic. -routine outpt surveillance -aggressive CV meds (aspirin, statin, bp control) HTN: -bp's soft at times here, olmesartan/HCTZ held -resume metoprolol, observe bp trend PAD: -prior LE stents, ? details -plavix, statin
[2019-03-26 14:15] VITALS: BP 139/77; TEMP 97.8
== END 2019-03-26 14:30 | disposition home or self-care (01) | DRG 812 ==
LOC: JER 16:42 → JERBED 19:11 → J4W 03-25 02:07
PROVIDERS: ADMIT Family Medicine; ATTEND Family Medicine
DX: D64.9 Anemia, unspecified (principal); I50.42 Chronic combined systolic (congestive) and diastolic (congestive) heart failure; R07.9 Chest pain, unspecified; I25.10 Atherosclerotic heart disease of native coronary artery without angina pectoris; I25.9 Chronic ischemic heart disease, unspecified; I11.0 Hypertensive heart disease with heart failure; I27.20 Pulmonary hypertension, unspecified; R06.09 Other forms of dyspnea; Z95.1 Presence of aortocoronary bypass graft; Z98.61 Coronary angioplasty status
CPT/HCPCS: 36415; 71046-TC-FY; 78452-TC; 80053; 80061; 82550; 82553; 82607; 82728; 82962; 83036; 83540; 83550; 83721; 83735; 83880; 84484; 85025; 85027; 85610; 93005; 93010; 93017; 93306-TC; 93880-TC; 93970-TC; 94761; 99285-25; A9502; J1439; J2785

== ENCOUNTER 2019-06-04 09:58 | Day surgery (SDC) | payer OTHER ==
[2019-06-04] MEDS ORDERED: ETOMIDATE 20 MG/10 ML AMPUL IVPUSH ONE (11:49)
[2019-06-04] MEDS ORDERED: PROPOFOL 20 ML ONE (11:49)
[2019-06-04] MEDS ORDERED: BUPIVACAINE HCL/PF 0.25% (2.5MG/ML) 10 ML VIAL ONE (11:54)
[2019-06-04] MEDS ORDERED: LIDOCAINE HCL 1%, 10 MG/ML (20ML VIAL) ONE (11:54)
[2019-06-04] MEDS ORDERED: ceFAZolin 2 GRAM PREMIX BAG IVPB ONE (11:55)
--- NOTE | 2019-06-04 12:02 | HP ---
DATE OF ADMISSION: 06/04/2019 HISTORY OF PRESENT ILLNESS: The patient is an 78-year-old male with history of recurrent balanitis and phimosis for the past several months he is unable to retract the penile foreskin. 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 This has given him painful erections due to the penile curvature. Patient does have history of atherosclerotic heart disease, coronary artery disease, hyperlipidemia, high blood pressure, type 2 diabetes, endocarditis with a valve replacement. He is on Benicar, hydrochlorothiazide, glipizide, metformin, Nexium, Valium, Plavix, Crestor, a statin, Ranexa, metoprolol, a PPI, Ambien for sleep. PHYSICAL EXAMINATION: Chest: Clear. He denies any chest pain or palpitations. Abdomen: Soft. No CVA tenderness. Genitalia: Revealed a phimotic penis with severe balanitis. The foreskin was unable to be retracted. Testes are soft and nontender. No hernias or hydroceles are elicited. His prostate is 2+ smooth, benign and nontender. Extremities: Reveal full range of motion with no cyanosis, clubbing, or edema. 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 The patient is to undergo a circumcision penoplasty. He does have history of arteriosclerotic heart disease. He is status post coronary artery bypass graft as well as aortic valve replacement. The patient is considered a moderate risk for cardiovascular complications. Surgery is recommended to be done under minimal anesthesia, but patient has no absolute contraindications for noncoronary surgery and is therefore cleared. Tesfaye [id number]
[2019-06-04] MEDS ORDERED: LIDOCAINE HCL 1%, 10 MG/ML (20ML VIAL) PNB ONE (12:05)
[2019-06-04] MEDS ORDERED: BUPIVACAINE HCL 0.25% 125 MG/50 ML VIAL NR ONE ×3 (12:09→12:25)
[2019-06-04] MEDS ORDERED: BACITRACIN 15 GM TUBE TOPICAL OINTMENT TP ONE (12:25)
--- NOTE | 2019-06-04 12:39 | OP ---
Operative Note - Note: Operative Date: 06/04/19 Pre-Operative Diagnosis: phimosis, balinitis, and penile chordee Operation: circumcison and penoplasty Findings: penile chordee and severe phimosis Post-Operative Diagnosis: Same as Pre-op Surgeon: Andrzej Quezada Anesthesia: General, Local Specimens Removed: penile forskin Estimated Blood Loss (mls): 10 Drains, Volume Out (mls): 0 Blood Volume Replaced (mls): 0 Fluid Volume Replaced (mls): 0 Operative Report Dictated: Yes
[2019-06-04] MEDS ORDERED: ZOLPIDEM TARTRATE 5 MG TABLET PO PRN (12:48)
[2019-06-04] MEDS ORDERED: ACETAMINOPHEN 325 MG TABLET (FP) PO PRN (12:48)
--- NOTE | 2019-06-04 20:49 | PN ---
Progress Note (short form) - Note Progress Note: UROLOGY NOTE. S/P PENOPLASTY AND CIRCUMCISION. WOUND-CLEAN AND DRY. VOIDING WELL. PLAN-D/C IN AM.
[2019-06-04] MEDS: TAMSULOSIN HCL 0.4 MG CAP PO SCH (21:18)
[2019-06-04] MEDS ORDERED: PT OWN MED DRAWER 7, Y5N ONE (21:22)
[2019-06-04] MEDS ORDERED: metoPROLOL SUCCINATE 25 MG TAB.SR.24H (FP) PO SCH (22:00)
[2019-06-05] MEDS ORDERED: metFORMIN HCL 500 MG TABLET (FP) PO SCH (07:00)
[2019-06-05] MEDS: TAMSULOSIN HCL 0.4 MG CAP PO SCH (09:43)
[2019-06-05] MEDS ORDERED: PANTOPRAZOLE 40 MG TABLET (FP) PO SCH (10:00)
[2019-06-05] MEDS ORDERED: RAMIPRIL 5 MG CAPSULE (FP) PO SCH (10:00)
[2019-06-05] MEDS ORDERED: CLOPIDOGREL BISULFATE 75 MG TABLET (FP) PO SCH (10:00)
[2019-06-05 13:03] VITALS: BP 113/61; PULSE 69; TEMP 97.9
--- NOTE | 2019-06-06 18:18 | PATH ---
Surgical Pathology Report Patient Name: GIANA SEPULVEDA [facility]. Rec. #: [id number] /Age/Gender: 1940 (Age: 78) / M Account: [id number] Location: AMBULATORY SURG Taken: 06/04/2019 Received: 06/05/2019 Reported: 06/06/2019 Physicians: Andrzej Quezada M.D. Specimen(s) Received FORESKIN Clinical History Phimosis, balanitis Final Diagnosis FORESKIN, CIRCUMCISION WITH PENOPLASTY: FORESKIN WITH MILD PATCHY SUPERFICIAL CHRONIC INFLAMMATORY INFILTRATE. Electronically Signed Theresa Alfred M.D. Gross Description Received in formalin labeled "foreskin," is a 4.5 x 2.5 x 0.4 cm martel, wrinkled portion of skin, consistent with foreskin. No discrete epidermal lesions are identified. Curator Of Education sections are submitted in one cassette. /06/05/2019 saudi/06/05/2019
--- NOTE | 2019-06-13 14:28 | OP ---
DATE OF OPERATION: 06/04/2019 PREOPERATIVE DIAGNOSIS: Penile chordee, balanitis, and phimosis. OPERATIVE PROCEDURE: Penile block, circumcision, penoplasty. ANESTHESIA: General. DESCRIPTION OF PROCEDURE: Under above-stated anesthesia, patient is prepped and draped in the usual sterile manner. He is placed in the supine position. A tourniquet was placed at the base of the penis. Next, 65 mL of normal saline was then injected into the right corpora cavernosum. An artificial erection was created. This revealed curvature of the glans penis due to a scarred meatus. A circumferential incision was made below the abdi of the penis. This was carried down through skin and subcutaneous tissue. Using both blunt and sharp dissection, the entire penile shaft was degloved. Attention was brought to the neurovascular bundle which was not touched. The fibrous tissue surrounding the spongiosum was lysed with a Grajeda scissors. The frenulum was isolated and clamped proximally and distally and severed. A repeat artificial erection revealed straightening of the penis. Excess foreskin was excised in a circumferential manner. Again, hemostasis was secured with electrocoagulation and 6-0 Vicryl ties. Skin from the glans was approximated to skin from the shaft using 5-0 Vicryl suture ligatures. Pressure dressing was applied. The base of the penis was infiltrated with 0.25% Marcaine for long-term analgesia. The patient tolerated the procedure well. He returned to the recovery room in good condition. Tesfaye [id number]
== END 2019-06-05 14:16 | disposition home or self-care (01) ==
LOC: JASU-SURG 09:58 → JASUSAT 09:58 → J6S 17:04 → JASUSAT 06-05 14:16
PROVIDERS: ATTEND Urology
PROC: 0VTTXZZ Resection of Prepuce, External Approach (ICD-10-PCS; principal; 2019-06-04 12:30)
DX: N47.1 Phimosis (principal); N48.1 Balanitis; N48.89 Other specified disorders of penis
CPT/HCPCS: 82962; 88304-TC; 94010; 94760

== ENCOUNTER 2021-04-04 12:56 | Inpatient (IN) | payer OTHER ==
[2021-04-04 13:20] VITALS: BMI 29.9
[2021-04-04] MEDS ORDERED: dilTIAZem HCL 50 MG/10 ML - 10 ML VIAL IVPUSH ONE ×6 (13:20→22:20)
[2021-04-04] MEDS ORDERED: dilTIAZem HCL 125 MG/25 ML - 25 ML VIAL ONE ×2 (13:23→22:13)
[2021-04-04] MEDS ORDERED: SODIUM CHLORIDE 0.9% 500 ML INFUS.BAG IV ONE (13:34)
[2021-04-04 14:10] LABS: BASO % 0.9 % (0-2.0); HEMATOCRIT 39.1 % (35.4-49); HEMOGLOBIN 12.9 GM/dL (11.7-16.9); LYMPH % 21.6 % (8-40); MCH 26.4 pg (25.7-33.7); MCHC 32.9 g/dl (32.0-35.9); MEAN CELL VOLUME 80.2 fl (80-96); MEAN PLT VOLUME 8.7 fl (7.5-11.1); MONO % 8.4 % (3.8-10.2); NEUT % 68.1 % (42.8-82.8); PLATELET COUNT 325 10^3/uL (134-434); RBC 4.88 M/mm3 (4.00-5.60); RDW 15.8 % (11.9-15.9); WHITE BLOOD COUNT 10.6 K/mm3 (4.0-10.0)
[2021-04-04 14:14] LABS: INR 1.2 (0.83-1.09); PROTHROMBIN TIME (PATIENT) 14.5 SEC (9.7-13.0)
[2021-04-04 14:27] LABS: CHLORIDE 103 mmol/L (98-107); SODIUM 138 mmol/L (136-145)
[2021-04-04 14:29] LABS: CALCIUM 9.5 mg/dL (8.5-10.1)
[2021-04-04 14:30] LABS: ALBUMIN 3.7 g/dl (3.4-5.0); ANION GAP 11 MMOL/L (8-16); BLOOD UREA NITROGEN 19.1 mg/dL (7-18); CO2 24 mmol/L (21-32); GLUCOSE,RANDOM 166 mg/dL (74-106)
[2021-04-04 14:33] LABS: CREATININE 0.9 mg/dL (0.55-1.3); SGPT/ALT 26 U/L (13-61)
[2021-04-04 14:35] LABS: BILIRUBIN,TOTAL 0.5 mg/dL (0.2-1); TOT PROT 7.1 g/dl (6.4-8.2)
[2021-04-04 14:36] LABS: ALK PHOS 79 U/L (45-117)
[2021-04-04 14:38] LABS: N-TERMINAL BNP 2503.7 pg/ml (5-450); SGOT/AST 14 U/L (15-37)
[2021-04-04] MEDS ORDERED: dilTIAZem HCL 50 MG/10 ML - 10 ML VIAL ONE (19:50)
[2021-04-04] MEDS ORDERED: TAMSULOSIN HCL 0.4 MG CAP PO SCH (21:30)
[2021-04-04] MEDS ORDERED: FUROSEMIDE 40 MG/4 ML INJECTABLE VIAL IVPUSH ONE (21:54)
[2021-04-04] MEDS ORDERED: metoPROLOL SUCCINATE 25 MG TAB.SR.24H (FP) PO SCH (22:00)
[2021-04-04] MEDS ORDERED: APIXABAN 5 MG TABLET ONE (22:10)
[2021-04-04] MEDS ORDERED: FUROSEMIDE 40 MG/4 ML INJECTABLE VIAL ONE (22:11)
[2021-04-04] MEDS: APIXABAN 5 MG TABLET PO SCH (22:21)
[2021-04-04] MEDS: INSULIN SLIDING SCALE (NOVOLOG) 1 VIAL SQ SCH (22:27)
[2021-04-05] MEDS ORDERED: MELATONIN 5 MG TABLETS PO ONE (03:40)
[2021-04-05] MEDS ORDERED: MELATONIN 5 MG TABLETS ONE (03:41)
[2021-04-05 07:05] LABS: BASO % 1.2 % (0-2.0); EOS % 1.5 % (0-4.5); HEMATOCRIT 38.7 % (35.4-49); HEMOGLOBIN 12.7 GM/dL (11.7-16.9); LYMPH % 22.4 % (8-40); MCH 26.3 pg (25.7-33.7); MCHC 32.8 g/dl (32.0-35.9); MEAN PLT VOLUME 8.3 fl (7.5-11.1); MONO % 8.8 % (3.8-10.2); NEUT % 66.1 % (42.8-82.8); PLATELET COUNT 303 10^3/uL (134-434); RBC 4.84 M/mm3 (4.00-5.60); RDW 15.7 % (11.9-15.9); WHITE BLOOD COUNT 10.3 K/mm3 (4.0-10.0)
[2021-04-05 07:18] LABS: CALCIUM 8.7 mg/dL (8.5-10.1)
[2021-04-05 07:19] LABS: ALBUMIN 3.3 g/dl (3.4-5.0); BLOOD UREA NITROGEN 21.9 mg/dL (7-18)
[2021-04-05 07:24] LABS: BILIRUBIN,TOTAL 0.5 mg/dL (0.2-1); CREATININE 0.9 mg/dL (0.55-1.3); TOT PROT 5.8 g/dl (6.4-8.2)
[2021-04-05] MEDS ORDERED: PT OWN MED DRAWER 7, Y5N ONE ×3 (08:18→19:01)
[2021-04-05] MEDS: INSULIN SLIDING SCALE (NOVOLOG) 1 VIAL SQ SCH ×4 (08:30→21:26)
[2021-04-05] MEDS ORDERED: TAMSULOSIN HCL 0.4 MG CAP PO SCH (08:30)
[2021-04-05] MEDS: METOPROLOL TARTRATE 5 MG/5 ML VIAL IVPUSH PRN ×3 (09:20→20:50)
[2021-04-05] MEDS ORDERED: APIXABAN 2.5 MG TABLET ONE (09:21)
[2021-04-05] MEDS ORDERED: CLOPIDOGREL BISULFATE 75 MG TABLET (FP) PO SCH (10:00)
[2021-04-05] MEDS ORDERED: RAMIPRIL 5 MG CAPSULE PO SCH (10:00)
[2021-04-05] MEDS: APIXABAN 5 MG TABLET PO SCH ×2 (10:53→21:27)
[2021-04-05] MEDS ORDERED: ASPIRIN 81 MG CHEWABLE TABLETS ONE (11:01)
[2021-04-05] MEDS: PANTOPRAZOLE 40 MG TABLET PO SCH (11:10)
[2021-04-05] MEDS: ASPIRIN 81 MG CHEWABLE TABLETS PO SCH (11:10)
[2021-04-05] MEDS ORDERED: METOPROLOL TARTRATE 5 MG/5 ML VIAL ONE ×2 (14:12→18:25)
[2021-04-05] MEDS ORDERED: INSULIN SLIDING SCALE (NOVOLOG) 1 VIAL SQ ONE (14:18)
[2021-04-05] MEDS ORDERED: dilTIAZem HCL 30 MG TABLET ONE (17:04)
[2021-04-05] MEDS: dilTIAZem HCL 30 MG TABLET PO SCH ×3 (17:55→23:14)
[2021-04-05] MEDS: ACETAMINOPHEN 325 MG TABLET (FP) PO PRN (20:48)
[2021-04-05] MEDS: DOCUSATE SODIUM 100 MG CAPSULE (FP) PO SCH (23:08)
[2021-04-05] MEDS: MELATONIN 5 MG TABLETS PO SCH (23:08)
[2021-04-06] MEDS ORDERED: ATORVASTATIN CA 20 MG TABLET (FP) PO ONE (00:03)
[2021-04-06] MEDS: METOPROLOL TARTRATE 5 MG/5 ML VIAL IVPUSH PRN (03:51)
[2021-04-06] MEDS: dilTIAZem HCL 30 MG TABLET PO SCH ×3 (05:51→17:04)
[2021-04-06] MEDS: ACETAMINOPHEN 325 MG TABLET (FP) PO PRN (05:52)
[2021-04-06] MEDS: INSULIN SLIDING SCALE (NOVOLOG) 1 VIAL SQ SCH ×4 (06:47→23:22)
[2021-04-06 08:38] LABS: BASO % 0.8 % (0-2.0); EOS % 1.7 % (0-4.5); HEMATOCRIT 36.5 % (35.4-49); LYMPH % 26.4 % (8-40); MCH 26.2 pg (25.7-33.7); MCHC 32.8 g/dl (32.0-35.9); MEAN CELL VOLUME 79.9 fl (80-96); MEAN PLT VOLUME 8.7 fl (7.5-11.1); MONO % 9.9 % (3.8-10.2); NEUT % 61.2 % (42.8-82.8); PLATELET COUNT 277 10^3/uL (134-434); RBC 4.57 M/mm3 (4.00-5.60); RDW 15.7 % (11.9-15.9); WHITE BLOOD COUNT 9.4 K/mm3 (4.0-10.0)
[2021-04-06 08:53] LABS: CALCIUM 8.6 mg/dL (8.5-10.1)
[2021-04-06 08:54] LABS: BLOOD UREA NITROGEN 25.2 mg/dL (7-18)
[2021-04-06 08:57] LABS: CREATININE 0.9 mg/dL (0.55-1.3)
[2021-04-06 08:58] LABS: BILIRUBIN,TOTAL 0.6 mg/dL (0.2-1); TOT PROT 6.3 g/dl (6.4-8.2)
[2021-04-06 09:26] LABS: ALBUMIN 3.1 g/dl (3.4-5.0)
[2021-04-06] MEDS: ASPIRIN 81 MG CHEWABLE TABLETS PO SCH (09:54)
[2021-04-06] MEDS: APIXABAN 5 MG TABLET PO SCH ×2 (09:54→21:21)
[2021-04-06] MEDS: PANTOPRAZOLE 40 MG TABLET PO SCH (09:54)
[2021-04-06] MEDS ORDERED: LIDOCAINE 5% TOPICAL PATCH TP SCH (12:00)
[2021-04-06] MEDS: POLYETHYLENE GLYCOL (HEALTHYLAX) 3350 17 GM PACKET PO SCH (12:43)
[2021-04-06] MEDS: TAMSULOSIN HCL 0.4 MG CAP PO SCH ×2 (12:43→21:21)
[2021-04-06] MEDS: DOCUSATE SODIUM 100 MG CAPSULE (FP) PO SCH (21:21)
[2021-04-06] MEDS: ATORVASTATIN CA 20 MG TABLET (FP) PO SCH (21:21)
[2021-04-06] MEDS: MELATONIN 5 MG TABLETS PO SCH (21:22)
[2021-04-06] MEDS ORDERED: LIDOCAINE PATCH REMOVAL MC SCH (22:00)
[2021-04-06] MEDS: ZENPEP PO SCH (23:21)
[2021-04-07] MEDS: dilTIAZem HCL 30 MG TABLET PO SCH ×4 (00:03→17:10)
[2021-04-07] MEDS ORDERED: PT OWN MED DRAWER 7, Y5N ONE ×3 (00:16→19:30)
[2021-04-07] MEDS ORDERED: FUROSEMIDE 20 MG TABLET (FP) PO ONE (00:30)
[2021-04-07] MEDS: ZENPEP PO SCH ×3 (06:03→17:10)
[2021-04-07] MEDS: INSULIN SLIDING SCALE (NOVOLOG) 1 VIAL SQ SCH ×4 (06:11→22:08)
[2021-04-07 07:28] LABS: BASO % 0.9 % (0-2.0); EOS % 0.5 % (0-4.5); HEMATOCRIT 35.9 % (35.4-49); HEMOGLOBIN 11.8 GM/dL (11.7-16.9); LYMPH % 21.8 % (8-40); MCH 26.1 pg (25.7-33.7); MCHC 32.8 g/dl (32.0-35.9); MEAN CELL VOLUME 79.6 fl (80-96); MEAN PLT VOLUME 8.3 fl (7.5-11.1); MONO % 7.6 % (3.8-10.2); NEUT % 69.2 % (42.8-82.8); PLATELET COUNT 265 10^3/uL (134-434); WHITE BLOOD COUNT 9.1 K/mm3 (4.0-10.0)
[2021-04-07 07:56] LABS: CALCIUM 8.5 mg/dL (8.5-10.1)
[2021-04-07 07:57] LABS: BLOOD UREA NITROGEN 19.6 mg/dL (7-18)
[2021-04-07 08:00] LABS: CREATININE 0.8 mg/dL (0.55-1.3); TOT PROT 6.2 g/dl (6.4-8.2)
[2021-04-07 08:02] LABS: BILIRUBIN,TOTAL 0.8 mg/dL (0.2-1)
[2021-04-07] MEDS: METOPROLOL TARTRATE 5 MG/5 ML VIAL IVPUSH PRN (08:22)
[2021-04-07] MEDS: ASPIRIN 81 MG CHEWABLE TABLETS PO SCH (10:06)
[2021-04-07] MEDS: POLYETHYLENE GLYCOL (HEALTHYLAX) 3350 17 GM PACKET PO SCH (10:06)
[2021-04-07] MEDS: APIXABAN 5 MG TABLET PO SCH ×2 (10:06→22:04)
[2021-04-07] MEDS: TAMSULOSIN HCL 0.4 MG CAP PO SCH ×2 (10:06→22:26)
[2021-04-07] MEDS: PANTOPRAZOLE 40 MG TABLET PO SCH (10:06)
[2021-04-07] MEDS: ATORVASTATIN CA 20 MG TABLET (FP) PO SCH (22:04)
[2021-04-07] MEDS: DOCUSATE SODIUM 100 MG CAPSULE (FP) PO SCH (22:04)
[2021-04-07] MEDS: MELATONIN 5 MG TABLETS PO SCH (22:04)
[2021-04-08] MEDS: dilTIAZem HCL 30 MG TABLET PO SCH ×5 (00:03→23:46)
[2021-04-08] MEDS: ZENPEP PO SCH ×3 (06:16→16:56)
[2021-04-08] MEDS: INSULIN SLIDING SCALE (NOVOLOG) 1 VIAL SQ SCH ×4 (06:16→21:47)
[2021-04-08] MEDS: ASPIRIN 81 MG CHEWABLE TABLETS PO SCH (09:26)
[2021-04-08] MEDS: PANTOPRAZOLE 40 MG TABLET PO SCH (09:26)
[2021-04-08] MEDS: TAMSULOSIN HCL 0.4 MG CAP PO SCH ×2 (09:26→21:34)
[2021-04-08] MEDS: APIXABAN 5 MG TABLET PO SCH ×2 (09:26→21:33)
[2021-04-08] MEDS: POLYETHYLENE GLYCOL (HEALTHYLAX) 3350 17 GM PACKET PO SCH (09:27)
[2021-04-08] MEDS ORDERED: SODIUM PHOSPHATE/NA BIPHOS 133 ML ENEMA RC ONE (14:16)
[2021-04-08] MEDS: DOCUSATE SODIUM 100 MG CAPSULE (FP) PO SCH (21:31)
[2021-04-08] MEDS: ATORVASTATIN CA 20 MG TABLET (FP) PO SCH (21:32)
[2021-04-08] MEDS: MELATONIN 5 MG TABLETS PO SCH (21:32)
[2021-04-09] MEDS: METOPROLOL TARTRATE 5 MG/5 ML VIAL IVPUSH PRN ×2 (02:02→15:12)
[2021-04-09] MEDS: dilTIAZem HCL 30 MG TABLET PO SCH ×2 (06:42→11:05)
[2021-04-09] MEDS: ZENPEP PO SCH ×3 (06:46→17:04)
[2021-04-09] MEDS: INSULIN SLIDING SCALE (NOVOLOG) 1 VIAL SQ SCH ×4 (06:47→22:29)
[2021-04-09 08:24] LABS: BASO % 0.8 % (0-2.0); EOS % 1.5 % (0-4.5); HEMATOCRIT 36.3 % (35.4-49); HEMOGLOBIN 11.9 GM/dL (11.7-16.9); LYMPH % 20.2 % (8-40); MCH 26.4 pg (25.7-33.7); MCHC 32.8 g/dl (32.0-35.9); MEAN CELL VOLUME 80.5 fl (80-96); MEAN PLT VOLUME 8.8 fl (7.5-11.1); NEUT % 68.5 % (42.8-82.8); PLATELET COUNT 294 10^3/uL (134-434); WHITE BLOOD COUNT 8.5 K/mm3 (4.0-10.0)
[2021-04-09 08:37] LABS: CALCIUM 9.5 mg/dL (8.5-10.1)
[2021-04-09 08:38] LABS: ALBUMIN 3.2 g/dl (3.4-5.0); BLOOD UREA NITROGEN 30.8 mg/dL (7-18)
[2021-04-09 08:42] LABS: TOT PROT 6.5 g/dl (6.4-8.2)
[2021-04-09] MEDS: TAMSULOSIN HCL 0.4 MG CAP PO SCH ×2 (11:04→22:28)
[2021-04-09] MEDS: POLYETHYLENE GLYCOL (HEALTHYLAX) 3350 17 GM PACKET PO SCH (11:05)
[2021-04-09] MEDS: PANTOPRAZOLE 40 MG TABLET PO SCH (11:05)
[2021-04-09] MEDS: APIXABAN 5 MG TABLET PO SCH ×2 (11:05→22:28)
[2021-04-09] MEDS: ASPIRIN 81 MG CHEWABLE TABLETS PO SCH (11:05)
[2021-04-09] MEDS ORDERED: PT OWN MED DRAWER 7, Y5N ONE (11:10)
[2021-04-09] MEDS: DILTIAZEM INJECTION 125 MG in SODIUM CHLORIDE 100 ML IVPB SCH (17:03)
[2021-04-09] MEDS: ACETAMINOPHEN 325 MG TABLET (FP) PO PRN (22:27)
[2021-04-09] MEDS: MELATONIN 5 MG TABLETS PO SCH (22:28)
[2021-04-09] MEDS: ATORVASTATIN CA 20 MG TABLET (FP) PO SCH (22:28)
[2021-04-09] MEDS: CLOTRIMAZOLE 1% CREAM TP SCH (22:28)
[2021-04-09] MEDS: DOCUSATE SODIUM 100 MG CAPSULE (FP) PO SCH (22:28)
[2021-04-10] MEDS: INSULIN SLIDING SCALE (NOVOLOG) 1 VIAL SQ SCH ×4 (06:39→21:41)
[2021-04-10] MEDS: ZENPEP PO SCH ×3 (06:40→16:51)
[2021-04-10] MEDS: ASPIRIN 81 MG CHEWABLE TABLETS PO SCH (10:54)
[2021-04-10] MEDS: APIXABAN 5 MG TABLET PO SCH ×2 (10:54→21:41)
[2021-04-10] MEDS: POLYETHYLENE GLYCOL (HEALTHYLAX) 3350 17 GM PACKET PO SCH (10:54)
[2021-04-10] MEDS: PANTOPRAZOLE 40 MG TABLET PO SCH (10:55)
[2021-04-10] MEDS: CLOTRIMAZOLE 1% CREAM TP SCH ×2 (10:55→21:43)
[2021-04-10] MEDS: TAMSULOSIN HCL 0.4 MG CAP PO SCH ×2 (10:55→21:41)
[2021-04-10] MEDS: DIGOXIN 0.5 MG/2 ML AMPUL IVPUSH SCH ×2 (10:55→15:35)
[2021-04-10] MEDS: DILTIAZEM INJECTION 125 MG in SODIUM CHLORIDE 100 ML IVPB SCH (16:46)
[2021-04-10] MEDS: ATORVASTATIN CA 20 MG TABLET (FP) PO SCH (21:41)
[2021-04-10] MEDS: MELATONIN 5 MG TABLETS PO SCH (21:41)
[2021-04-10] MEDS: DOCUSATE SODIUM 100 MG CAPSULE (FP) PO SCH (21:41)
[2021-04-10] MEDS: ACETAMINOPHEN 325 MG TABLET (FP) PO PRN (21:46)
[2021-04-11] MEDS: ZENPEP PO SCH ×3 (06:30→17:43)
[2021-04-11] MEDS: INSULIN SLIDING SCALE (NOVOLOG) 1 VIAL SQ SCH ×4 (06:31→21:55)
[2021-04-11] MEDS: ASPIRIN 81 MG CHEWABLE TABLETS PO SCH (10:57)
[2021-04-11] MEDS: TAMSULOSIN HCL 0.4 MG CAP PO SCH ×2 (10:57→22:30)
[2021-04-11] MEDS: APIXABAN 5 MG TABLET PO SCH ×2 (10:57→21:58)
[2021-04-11] MEDS: POLYETHYLENE GLYCOL (HEALTHYLAX) 3350 17 GM PACKET PO SCH (10:58)
[2021-04-11] MEDS: CLOTRIMAZOLE 1% CREAM TP SCH ×2 (10:58→21:58)
[2021-04-11] MEDS: PANTOPRAZOLE 40 MG TABLET PO SCH (10:58)
[2021-04-11] MEDS ORDERED: SODIUM PHOSPHATE/NA BIPHOS 133 ML ENEMA RC ONE (17:15)
[2021-04-11] MEDS: DILTIAZEM INJECTION 125 MG in SODIUM CHLORIDE 100 ML IVPB SCH (17:40)
[2021-04-11] MEDS ORDERED: INSULIN (NOVOLOG) ASPART 100 UNITS/ML 10ML VIAL ONE (21:52)
[2021-04-11] MEDS: DOCUSATE SODIUM 100 MG CAPSULE (FP) PO SCH (21:57)
[2021-04-11] MEDS: AMIODARONE HCL 200 MG TABLET PO SCH (21:57)
[2021-04-11] MEDS: ATORVASTATIN CA 20 MG TABLET (FP) PO SCH (21:58)
[2021-04-11] MEDS: MELATONIN 5 MG TABLETS PO SCH (21:58)
[2021-04-12] MEDS: INSULIN SLIDING SCALE (NOVOLOG) 1 VIAL SQ SCH ×4 (06:13→23:30)
[2021-04-12] MEDS: ZENPEP PO SCH ×3 (06:14→17:33)
[2021-04-12 09:06] LABS: BASO % 1.3 % (0-2.0); EOS % 1.6 % (0-4.5); HEMATOCRIT 35.8 % (35.4-49); HEMOGLOBIN 11.9 GM/dL (11.7-16.9); LYMPH % 25.5 % (8-40); MCH 26.3 pg (25.7-33.7); MCHC 33.2 g/dl (32.0-35.9); MEAN CELL VOLUME 79.1 fl (80-96); MEAN PLT VOLUME 8.6 fl (7.5-11.1); MONO % 9.3 % (3.8-10.2); NEUT % 62.3 % (42.8-82.8); PLATELET COUNT 280 10^3/uL (134-434); RBC 4.53 M/mm3 (4.00-5.60); RDW 16.2 % (11.9-15.9); WHITE BLOOD COUNT 8.3 K/mm3 (4.0-10.0)
[2021-04-12 09:28] LABS: BLOOD UREA NITROGEN 25.2 mg/dL (7-18); CALCIUM 8.7 mg/dL (8.5-10.1)
[2021-04-12] MEDS ORDERED: PT OWN MED DRAWER 7, Y5N ONE (09:28)
[2021-04-12 09:31] LABS: CREATININE 0.8 mg/dL (0.55-1.3)
[2021-04-12 09:33] LABS: BILIRUBIN,TOTAL 0.4 mg/dL (0.2-1); TOT PROT 6.2 g/dl (6.4-8.2)
[2021-04-12] MEDS: PANTOPRAZOLE 40 MG TABLET PO SCH (10:01)
[2021-04-12] MEDS: APIXABAN 5 MG TABLET PO SCH ×2 (10:01→23:23)
[2021-04-12] MEDS: AMIODARONE HCL 200 MG TABLET PO SCH ×2 (10:01→23:23)
[2021-04-12] MEDS: TAMSULOSIN HCL 0.4 MG CAP PO SCH ×2 (10:01→23:23)
[2021-04-12] MEDS: ASPIRIN 81 MG CHEWABLE TABLETS PO SCH (10:17)
[2021-04-12] MEDS: POLYETHYLENE GLYCOL (HEALTHYLAX) 3350 17 GM PACKET PO SCH (10:17)
[2021-04-12] MEDS ORDERED: LIDOCAINE VISCOUS 2% ORAL/TOP 15 ML UNIT-DOSE CUP ONE (10:21)
[2021-04-12] MEDS ORDERED: LIDOCAINE VISCOUS 2% ORAL/TOP 15 ML UNIT-DOSE CUP MM ONE (10:58)
[2021-04-12] MEDS: CLOTRIMAZOLE 1% CREAM TP SCH ×2 (13:08→23:24)
[2021-04-12] MEDS ORDERED: INSULIN (NOVOLOG) ASPART 100 UNITS/ML 10ML VIAL ONE (17:11)
[2021-04-12] MEDS: ACETAMINOPHEN 325 MG TABLET (FP) PO PRN (17:29)
[2021-04-12] MEDS: DOCUSATE SODIUM 100 MG CAPSULE (FP) PO SCH (23:22)
[2021-04-12] MEDS: MELATONIN 5 MG TABLETS PO SCH (23:23)
[2021-04-12] MEDS: ATORVASTATIN CA 20 MG TABLET (FP) PO SCH (23:23)
[2021-04-13] MEDS: INSULIN SLIDING SCALE (NOVOLOG) 1 VIAL SQ SCH ×4 (07:01→21:46)
[2021-04-13] MEDS: ZENPEP PO SCH ×3 (07:02→17:34)
[2021-04-13] MEDS: TAMSULOSIN HCL 0.4 MG CAP PO SCH ×2 (09:13→21:40)
[2021-04-13] MEDS: PANTOPRAZOLE 40 MG TABLET PO SCH (09:13)
[2021-04-13] MEDS: AMIODARONE HCL 200 MG TABLET PO SCH (09:13)
[2021-04-13] MEDS: ASPIRIN 81 MG CHEWABLE TABLETS PO SCH (09:13)
[2021-04-13] MEDS: APIXABAN 5 MG TABLET PO SCH ×2 (09:14→21:39)
[2021-04-13] MEDS: CLOTRIMAZOLE 1% CREAM TP SCH ×2 (09:14→21:45)
[2021-04-13] MEDS: POLYETHYLENE GLYCOL (HEALTHYLAX) 3350 17 GM PACKET PO SCH (09:14)
[2021-04-13] MEDS ORDERED: FUROSEMIDE 40 MG/4 ML INJECTABLE VIAL IVPUSH ONE (13:15)
[2021-04-13] MEDS: DOCUSATE SODIUM 100 MG CAPSULE (FP) PO SCH (21:39)
[2021-04-13] MEDS: MELATONIN 5 MG TABLETS PO SCH (21:40)
[2021-04-13] MEDS: ATORVASTATIN CA 20 MG TABLET (FP) PO SCH (21:40)
[2021-04-14 06:06] VITALS: TEMP 98
[2021-04-14] MEDS: INSULIN SLIDING SCALE (NOVOLOG) 1 VIAL SQ SCH ×2 (06:38→12:00)
[2021-04-14] MEDS: ZENPEP PO SCH ×2 (06:40→11:35)
[2021-04-14] MEDS ORDERED: FUROSEMIDE 40 MG/4 ML INJECTABLE VIAL IVPUSH SCH (10:00)
[2021-04-14] MEDS: POLYETHYLENE GLYCOL (HEALTHYLAX) 3350 17 GM PACKET PO SCH (10:36)
[2021-04-14] MEDS: APIXABAN 5 MG TABLET PO SCH (10:37)
[2021-04-14] MEDS: ASPIRIN 81 MG CHEWABLE TABLETS PO SCH (10:37)
[2021-04-14] MEDS: AMIODARONE HCL 200 MG TABLET PO SCH (10:37)
[2021-04-14] MEDS: PANTOPRAZOLE 40 MG TABLET PO SCH (10:37)
[2021-04-14] MEDS: TAMSULOSIN HCL 0.4 MG CAP PO SCH (11:00)
[2021-04-14] MEDS: CLOTRIMAZOLE 1% CREAM TP SCH (11:36)
[2021-04-14 15:26] VITALS: BP 119/69; PULSE 64
[2021-04-15] MEDS ORDERED: FUROSEMIDE 20 MG TABLET (FP) PO SCH (10:00)
== END 2021-04-14 15:55 | disposition home or self-care (01) | DRG 309 ==
LOC: JER 12:56 → JERBED 14:27 → J4W 04-05 20:39
PROVIDERS: ADMIT Internal Medicine; ATTEND Internal Medicine
PROC: 5A2204Z Restoration of Cardiac Rhythm, Single (ICD-10-PCS; 2021-04-12)
PROC: B24BZZ4 Ultrasonography of Heart with Aorta, Transesophageal (ICD-10-PCS; principal; 2021-04-12 12:00)
DX: I48.91 Unspecified atrial fibrillation (principal); I50.42 Chronic combined systolic (congestive) and diastolic (congestive) heart failure; I11.0 Hypertensive heart disease with heart failure; E11.9 Type 2 diabetes mellitus without complications; D64.9 Anemia, unspecified; N40.0 Benign prostatic hyperplasia without lower urinary tract symptoms; R06.09 Other forms of dyspnea; I25.10 Atherosclerotic heart disease of native coronary artery without angina pectoris; E11.51 Type 2 diabetes mellitus with diabetic peripheral angiopathy without gangrene; I25.119 Atherosclerotic heart disease of native coronary artery with unspecified angina pectoris; I45.10 Unspecified right bundle-branch block; Z95.1 Presence of aortocoronary bypass graft; E78.5 Hyperlipidemia, unspecified; Z98.61 Coronary angioplasty status
CPT/HCPCS: 36415; 71045-TC-FY; 80053; 80061; 82550; 82962; 83036; 83880; 84443; 84484; 85025; 85610; 93005; 93010; 93306-TC; 93312; 93325; 99285-25; C9803; U0003; U0005

== ENCOUNTER 2021-09-06 14:49 | Inpatient (IN) | payer OTHER ==
[2021-09-06 16:41] LABS: INR 1.54 (0.83-1.09); PROTHROMBIN TIME (PATIENT) 17.8 SEC (9.7-13.0)
[2021-09-06 16:44] LABS: ACTIVATED PTT 31.9 SECONDS (25.2-36.5)
[2021-09-06 16:57] LABS: BASO % 1.2 % (0-2.0); EOS % 1.7 % (0-4.5); HEMATOCRIT 21.2 % (35.4-49); LYMPH % 28.9 % (8-40); MCH 21.6 pg (25.7-33.7); MCHC 30.5 g/dl (32.0-35.9); MEAN CELL VOLUME 70.7 fl (80-96); MEAN PLT VOLUME 7.7 fl (7.5-11.1); MONO % 9.4 % (3.8-10.2); NEUT % 58.8 % (42.8-82.8); PLATELET COUNT 311 10^3/uL (134-434); RDW 18.6 % (11.9-15.9); WHITE BLOOD COUNT 7.6 K/mm3 (4.0-10.0)
[2021-09-06 16:58] LABS: CHLORIDE 102 mmol/L (98-107); SODIUM 137 mmol/L (136-145)
[2021-09-06 17:00] LABS: ALBUMIN 3.9 g/dl (3.4-5.0); ANION GAP 8 MMOL/L (8-16); BLOOD UREA NITROGEN 17.7 mg/dL (7-18); CALCIUM 9.7 mg/dL (8.5-10.1); CO2 27 mmol/L (21-32); HEMOGLOBIN 6.5 GM/dL (11.7-16.9)
[2021-09-06 17:01] LABS: GLUCOSE,RANDOM 160 mg/dL (74-106)
[2021-09-06 17:03] LABS: SGOT/AST 15 U/L (15-37); SGPT/ALT 22 U/L (13-61)
[2021-09-06 17:04] LABS: CREATININE 0.9 mg/dL (0.55-1.3)
[2021-09-06 17:05] LABS: BILIRUBIN,TOTAL 0.3 mg/dL (0.2-1); TOT PROT 7.4 g/dl (6.4-8.2)
[2021-09-06 17:06] LABS: ALK PHOS 70 U/L (45-117)
[2021-09-06 17:58] LABS: ANISOCYTOSIS 2+; MACROCYTOSIS 1+; OVALOCYTE 1+; PLATELET ESTIMATE NORMAL
[2021-09-06] MEDS ORDERED: PANTOPRAZOLE 40 MG TABLET ONE (19:30)
[2021-09-06] MEDS: PANTOPRAZOLE 40 MG TABLET PO SCH (19:35)
[2021-09-06] MEDS ORDERED: ATORVASTATIN CA 20 MG TABLET (FP) PO SCH (22:00)
[2021-09-06] MEDS ORDERED: TAMSULOSIN HCL 0.4 MG CAP PO SCH (22:00)
[2021-09-06] MEDS: INSULIN SLIDING SCALE (NOVOLOG) 1 VIAL SQ SCH (22:30)
[2021-09-07 02:03] VITALS: BMI 29.6
[2021-09-07] MEDS: INSULIN SLIDING SCALE (NOVOLOG) 1 VIAL SQ SCH ×4 (06:07→21:03)
[2021-09-07] MEDS: DIGOXIN 0.125 MG TABLET PO SCH (09:10)
[2021-09-07] MEDS: TAMSULOSIN HCL 0.4 MG CAP PO SCH (09:10)
[2021-09-07] MEDS: PANTOPRAZOLE 40 MG TABLET PO SCH (09:11)
[2021-09-07] MEDS: LORATADINE 10 MG TABLET PO SCH (09:11)
[2021-09-07 09:14] LABS: BASO % 1.6 % (0-2.0); EOS % 1.8 % (0-4.5); HEMATOCRIT 26.8 % (35.4-49); HEMOGLOBIN 8.5 GM/dL (11.7-16.9); LYMPH % 23.2 % (8-40); MCH 23.7 pg (25.7-33.7); MCHC 31.6 g/dl (32.0-35.9); MEAN PLT VOLUME 7.8 fl (7.5-11.1); MONO % 11.1 % (3.8-10.2); NEUT % 62.3 % (42.8-82.8); PLATELET COUNT 284 10^3/uL (134-434); RBC 3.57 M/mm3 (4.00-5.60); RDW 19.1 % (11.9-15.9); WHITE BLOOD COUNT 7.1 K/mm3 (4.0-10.0)
[2021-09-07] MEDS ORDERED: AMIODARONE HCL 200 MG TABLET PO SCH (10:00)
[2021-09-07 10:14] LABS: ALBUMIN 3.5 g/dl (3.4-5.0); CALCIUM 8.9 mg/dL (8.5-10.1)
[2021-09-07 10:18] LABS: CREATININE 0.8 mg/dL (0.55-1.3)
[2021-09-07 10:20] LABS: BLOOD UREA NITROGEN 13.3 mg/dL (7-18)
[2021-09-07 10:21] LABS: TOT PROT 6.2 g/dl (6.4-8.2)
[2021-09-07 10:50] LABS: BILIRUBIN,TOTAL 0.9 mg/dL (0.2-1)
[2021-09-07 17:15] LABS: HEMATOCRIT 26.8 % (35.4-49); HEMOGLOBIN 8.5 GM/dL (11.7-16.9); MCH 23.9 pg (25.7-33.7); MCHC 31.8 g/dl (32.0-35.9); MEAN CELL VOLUME 75.2 fl (80-96); MEAN PLT VOLUME 7.1 fl (7.5-11.1); PLATELET COUNT 284 10^3/uL (134-434); RBC 3.56 M/mm3 (4.00-5.60); RDW 19.3 % (11.9-15.9); WHITE BLOOD COUNT 6.3 K/mm3 (4.0-10.0)
[2021-09-07] MEDS: ROSUVASTATIN CA 10 MG TABLET PO SCH (21:57)
[2021-09-07] MEDS: ZOLPIDEM TARTRATE 5 MG TABLET PO PRN ×2 (21:57)
[2021-09-07] MEDS: ACETAMINOPHEN 325 MG TABLET (FP) PO PRN (21:57)
[2021-09-07] MEDS ORDERED: FUROSEMIDE 40 MG/4 ML INJECTABLE VIAL IVPUSH ONE (22:00)
[2021-09-08] MEDS: INSULIN SLIDING SCALE (NOVOLOG) 1 VIAL SQ SCH ×4 (06:10→21:17)
[2021-09-08 07:38] LABS: BASO % 1.1 % (0-2.0); EOS % 2.2 % (0-4.5); HEMATOCRIT 31.2 % (35.4-49); HEMOGLOBIN 10.4 GM/dL (11.7-16.9); LYMPH % 16.4 % (8-40); MCH 25.4 pg (25.7-33.7); MCHC 33.3 g/dl (32.0-35.9); MEAN CELL VOLUME 76.2 fl (80-96); MEAN PLT VOLUME 7.3 fl (7.5-11.1); MONO % 12.1 % (3.8-10.2); NEUT % 68.2 % (42.8-82.8); PLATELET COUNT 295 10^3/uL (134-434); RDW 19.9 % (11.9-15.9); WHITE BLOOD COUNT 8.1 K/mm3 (4.0-10.0)
[2021-09-08 07:46] LABS: CALCIUM 8.8 mg/dL (8.5-10.1)
[2021-09-08 07:47] LABS: ALBUMIN 3.6 g/dl (3.4-5.0); BLOOD UREA NITROGEN 9.6 mg/dL (7-18)
[2021-09-08 07:48] LABS: CREATININE 0.9 mg/dL (0.55-1.3)
[2021-09-08 07:50] LABS: TOT PROT 6.5 g/dl (6.4-8.2)
[2021-09-08 07:52] LABS: BILIRUBIN,TOTAL 0.8 mg/dL (0.2-1)
[2021-09-08] MEDS: TAMSULOSIN HCL 0.4 MG CAP PO SCH (10:09)
[2021-09-08] MEDS: PANTOPRAZOLE 40 MG TABLET PO SCH (10:09)
[2021-09-08] MEDS: LORATADINE 10 MG TABLET PO SCH (10:10)
[2021-09-08] MEDS: DIGOXIN 0.125 MG TABLET PO SCH (10:10)
[2021-09-08] MEDS: ZOLPIDEM TARTRATE 5 MG TABLET PO PRN (21:16)
[2021-09-08] MEDS: ROSUVASTATIN CA 10 MG TABLET PO SCH (21:16)
[2021-09-09] MEDS: INSULIN SLIDING SCALE (NOVOLOG) 1 VIAL SQ SCH ×4 (07:42→22:07)
[2021-09-09 08:28] LABS: BASO % 0.8 % (0-2.0); EOS % 3.4 % (0-4.5); HEMATOCRIT 29.9 % (35.4-49); HEMOGLOBIN 9.8 GM/dL (11.7-16.9); MCHC 32.7 g/dl (32.0-35.9); MEAN CELL VOLUME 76.7 fl (80-96); MEAN PLT VOLUME 7.4 fl (7.5-11.1); MONO % 10.4 % (3.8-10.2); NEUT % 61.4 % (42.8-82.8); PLATELET COUNT 291 10^3/uL (134-434); RDW 20.6 % (11.9-15.9); WHITE BLOOD COUNT 7.3 K/mm3 (4.0-10.0)
[2021-09-09] MEDS: TAMSULOSIN HCL 0.4 MG CAP PO SCH (08:34)
[2021-09-09 08:52] LABS: ALBUMIN 3.4 g/dl (3.4-5.0)
[2021-09-09 08:53] LABS: CALCIUM 9.2 mg/dL (8.5-10.1)
[2021-09-09 08:54] LABS: BLOOD UREA NITROGEN 14.6 mg/dL (7-18)
[2021-09-09 08:57] LABS: CREATININE 0.7 mg/dL (0.55-1.3)
[2021-09-09 08:59] LABS: BILIRUBIN,TOTAL 0.5 mg/dL (0.2-1); TOT PROT 6.3 g/dl (6.4-8.2)
[2021-09-09] MEDS: DIGOXIN 0.125 MG TABLET PO SCH (09:40)
[2021-09-09] MEDS: PANTOPRAZOLE 40 MG TABLET PO SCH (09:40)
[2021-09-09] MEDS: LORATADINE 10 MG TABLET PO SCH (09:40)
[2021-09-09] MEDS: FUROSEMIDE 40 MG/4 ML INJECTABLE VIAL IVPUSH SCH (09:41)
[2021-09-09] MEDS: ACETAMINOPHEN 325 MG TABLET (FP) PO PRN (09:46)
[2021-09-09] MEDS ORDERED: DOCUSATE SODIUM 100 MG CAPSULE (FP) PO ONE (21:20)
[2021-09-09] MEDS: ROSUVASTATIN CA 10 MG TABLET PO SCH (22:02)
[2021-09-09] MEDS: ZOLPIDEM TARTRATE 5 MG TABLET PO PRN (22:02)
[2021-09-10] MEDS ORDERED: ZOLPIDEM TARTRATE 5 MG TABLET PO PRN (04:35)
[2021-09-10] MEDS: INSULIN SLIDING SCALE (NOVOLOG) 1 VIAL SQ SCH ×4 (06:09→21:47)
[2021-09-10 08:49] LABS: BASO % 1.3 % (0-2.0); HEMATOCRIT 31.5 % (35.4-49); HEMOGLOBIN 9.9 GM/dL (11.7-16.9); LYMPH % 23.2 % (8-40); MCH 24.6 pg (25.7-33.7); MCHC 31.4 g/dl (32.0-35.9); MEAN CELL VOLUME 78.3 fl (80-96); MEAN PLT VOLUME 7.4 fl (7.5-11.1); MONO % 9.5 % (3.8-10.2); PLATELET COUNT 322 10^3/uL (134-434); RBC 4.02 M/mm3 (4.00-5.60); WHITE BLOOD COUNT 7.8 K/mm3 (4.0-10.0)
[2021-09-10 09:10] LABS: CALCIUM 8.9 mg/dL (8.5-10.1)
[2021-09-10 09:12] LABS: ALBUMIN 3.4 g/dl (3.4-5.0)
[2021-09-10 09:15] LABS: CREATININE 0.8 mg/dL (0.55-1.3)
[2021-09-10 09:16] LABS: BILIRUBIN,TOTAL 0.5 mg/dL (0.2-1); TOT PROT 6.6 g/dl (6.4-8.2)
[2021-09-10] MEDS: PANTOPRAZOLE 40 MG TABLET PO SCH (09:26)
[2021-09-10] MEDS: TAMSULOSIN HCL 0.4 MG CAP PO SCH (09:26)
[2021-09-10] MEDS: FUROSEMIDE 40 MG/4 ML INJECTABLE VIAL IVPUSH SCH (09:26)
[2021-09-10] MEDS: LORATADINE 10 MG TABLET PO SCH (09:26)
[2021-09-10] MEDS: ROSUVASTATIN CA 10 MG TABLET PO SCH (21:47)
[2021-09-10] MEDS: APIXABAN 5 MG TABLET PO SCH (21:50)
[2021-09-11] MEDS: INSULIN SLIDING SCALE (NOVOLOG) 1 VIAL SQ SCH ×2 (06:23→11:19)
[2021-09-11 08:16] LABS: BASO % 0.9 % (0-2.0); EOS % 4.6 % (0-4.5); HEMATOCRIT 29.4 % (35.4-49); HEMOGLOBIN 9.3 GM/dL (11.7-16.9); LYMPH % 22.4 % (8-40); MCH 24.8 pg (25.7-33.7); MCHC 31.6 g/dl (32.0-35.9); MEAN CELL VOLUME 78.3 fl (80-96); MEAN PLT VOLUME 7.5 fl (7.5-11.1); MONO % 10.7 % (3.8-10.2); NEUT % 61.4 % (42.8-82.8); PLATELET COUNT 314 10^3/uL (134-434); RBC 3.76 M/mm3 (4.00-5.60); RDW 21.2 % (11.9-15.9); WHITE BLOOD COUNT 7.6 K/mm3 (4.0-10.0)
[2021-09-11 08:26] LABS: ALBUMIN 3.1 g/dl (3.4-5.0); CALCIUM 8.8 mg/dL (8.5-10.1)
[2021-09-11 08:27] LABS: BLOOD UREA NITROGEN 16.1 mg/dL (7-18)
[2021-09-11 08:28] LABS: CREATININE 0.8 mg/dL (0.55-1.3)
[2021-09-11 08:31] LABS: BILIRUBIN,TOTAL 0.3 mg/dL (0.2-1); TOT PROT 5.8 g/dl (6.4-8.2)
[2021-09-11] MEDS: APIXABAN 5 MG TABLET PO SCH (09:19)
[2021-09-11] MEDS: PANTOPRAZOLE 40 MG TABLET PO SCH (09:19)
[2021-09-11] MEDS: FUROSEMIDE 40 MG/4 ML INJECTABLE VIAL IVPUSH SCH (09:19)
[2021-09-11] MEDS: TAMSULOSIN HCL 0.4 MG CAP PO SCH (09:20)
[2021-09-11] MEDS: LORATADINE 10 MG TABLET PO SCH (09:20)
[2021-09-11 10:17] VITALS: BP 119/63; PULSE 73; TEMP 98.4
== END 2021-09-11 16:00 | disposition home or self-care (01) | DRG 377 ==
LOC: JER 14:49 → JERBED 16:36 → J4S 21:51
PROVIDERS: ADMIT Internal Medicine; ATTEND Internal Medicine
PROC: 30233N1 Transfusion of Nonautologous Red Blood Cells into Peripheral Vein, Percutaneous Approach (ICD-10-PCS; 2021-09-06)
PROC: 0DJ08ZZ Inspection of Upper Intestinal Tract, Via Natural or Artificial Opening Endoscopic (ICD-10-PCS; principal; 2021-09-08 12:00)
DX: K92.2 Gastrointestinal hemorrhage, unspecified (principal); I50.23 Acute on chronic systolic (congestive) heart failure; D62 Acute posthemorrhagic anemia; I24.8 Other forms of acute ischemic heart disease; N40.0 Benign prostatic hyperplasia without lower urinary tract symptoms; E78.5 Hyperlipidemia, unspecified; Z79.01 Long term (current) use of anticoagulants; D64.9 Anemia, unspecified; Z95.1 Presence of aortocoronary bypass graft; I25.10 Atherosclerotic heart disease of native coronary artery without angina pectoris; Z95.2 Presence of prosthetic heart valve; E11.51 Type 2 diabetes mellitus with diabetic peripheral angiopathy without gangrene; I27.20 Pulmonary hypertension, unspecified; E66.9 Obesity, unspecified; Z86.16 Personal history of COVID-19; Z79.84 Long term (current) use of oral hypoglycemic drugs; Z68.29 Body mass index [BMI] 29.0-29.9, adult; I48.0 Paroxysmal atrial fibrillation
CPT/HCPCS: 36415; 36430; 71045-TC-FY; 80053; 80162; 82272; 82550; 82962; 84484; 85025; 85027; 85610; 85730; 86850; 86900; 86901; 86922; 93005; 93010; 99285-25; C9803; P9038; P9058; U0003; U0005

== ENCOUNTER 2023-10-02 00:24 | Emergency (ER) | payer OTHER ==
[2023-10-02 00:47] VITALS: BMI 29.1
[2023-10-02 01:23] LABS: HEMATOCRIT 46.4 % (35.4-49); HEMOGLOBIN 15.1 GM/dL (11.7-16.9); MCH 26.7 pg (25.7-33.7); MCHC 32.5 g/dl (32.0-35.9); MEAN CELL VOLUME 82.1 fl (80-96); MEAN PLT VOLUME 7.8 fl (7.5-11.1); PLATELET COUNT 246 10^3/uL (134-434); RBC 5.65 M/mm3 (4.00-5.60); RDW 16.8 % (11.9-15.9); WHITE BLOOD COUNT 10.2 K/mm3 (4.0-10.0)
[2023-10-02 01:24] LABS: INR 1.18 (0.83-1.09); PROTHROMBIN TIME (PATIENT) 13.7 SEC (9.7-13.0)
[2023-10-02 01:31] LABS: POTASSIUM 3.7 mmol/L (3.5-5.1)
[2023-10-02 01:34] LABS: CALCIUM 9.7 mg/dL (8.5-10.1)
[2023-10-02 01:35] LABS: ALBUMIN 3.7 g/dl (3.4-5.0); BLOOD UREA NITROGEN 12.9 mg/dL (7-18); MAGNESIUM 1.4 mg/dL (1.8-2.4)
[2023-10-02 01:38] LABS: CREATININE 0.9 mg/dL (0.55-1.3)
[2023-10-02 01:39] LABS: BILIRUBIN,TOTAL 2.4 mg/dL (0.2-1); TOT PROT 7.4 g/dl (6.4-8.2)
[2023-10-02 03:14] LABS: ANISOCYTOSIS 0; MACROCYTOSIS 0
[2023-10-02 03:26] LABS: URINE APPEARANCE CLEAR; URINE BILIRUBIN NEGATIVE (NEGATIVE); URINE COLOR YELLOW; URINE GLUCOSE (UA) 3+ (NEGATIVE); URINE KETONE 1+ (NEGATIVE); URINE LEUK ESTERASE NEGATIVE (NEGATIVE); URINE NITRITE NEGATIVE (NEGATIVE); URINE PROTEIN TRACE (NEGATIVE)
[2023-10-02] MEDS: PIPERACILLIN/TAZOB 3.375 GM 3.375 GM in DEXTROSE 5%-WATER - 50 ML IVPB ONE (08:00)
[2023-10-02] MEDS ORDERED: PIPERACILLIN/TAZOB 3.375 GM 3.375 GM/50 ML BAG IVPB ONE (08:14)
[2023-10-02 09:48] VITALS: RESP 16
[2023-10-02 10:13] VITALS: BP 108/55; PULSE 85; TEMP 98.2
== END 2023-10-02 10:31 | disposition short-term general hospital (02) ==
LOC: JER 00:24
DX: R07.2 Precordial pain (principal); K80.50 Calculus of bile duct without cholangitis or cholecystitis without obstruction; Z20.822 Contact with and (suspected) exposure to COVID-19
CPT/HCPCS: 0241U-QW; 36415; 71045-TC-FY; 74177-TC; 80053; 81003; 83735; 83880; 84484; 85025; 85610; 85730; 93005; 93010; 96365; 99285-25; Q9967